=== PATIENT | male | born 1955 | race Caucasian/White ===

== ENCOUNTER 2024-03-06 00:42 | Inpatient (IN) | payer MEDICAID, MEDICARE ==
[~2024-03-06] VITALS: Ht 177.8 cm; Wt 125.0 kg
[2024-03-06 00:42] VITALS: PULSE 175; RESP 16; O2SAT 95
[~2024-03-06 00:42] MED LIST: CARV6.2551; ENAL1TAB48
[2024-03-06] MEDS: METOPROLOL TARTRATE 1MG/1ML-5ML VIAL IV ONE ×3 (00:54→02:00)
[2024-03-06] MEDS: FUROSEMIDE 40 MG/4 ML VIAL IV ONE ×2 (00:54→02:40)
--- NOTE | 2024-03-06 01:08 | ED.PDOC ---
SOB-HPI HPI Comments 68-year-old male came to ER via EMS for shortness of breath. Patient does have history of hypertension, CHF and COPD. Was noted to be short of breath for the past week, progressively worsening. Noted to be saturating 80 % on room air, placed on non-rebreather in improved with the 94%. EKG done revealed Afib at 170 bpm. Denies any acute chest pains. Chief Complaint: Shortness of Breath Time Seen by MD: 01:08 Primary Care Provider: NONE Reviewed notes: Lead Designer Notes Information Source: Patient, Emergency Med Personnel Mode of Arrival: EMS Severity: Moderate Timing: Days Duration: Since onset Context: With Light Exertion PE Risk Factors: None History of: COPD, CHF Prehospital treatment: Breathing Tx, Oxygen Modifying Factors: Nothing Associated Signs and Symptoms: Wheeze, Cough Quality: Tightness Radiation: No Radiation Past Medical History PAST MEDICAL HISTORY: CHF, COPD, HTN Surgical History: Denies all surgeries Family History Family History: Reviewed,noncontributory to illness Social History Smoker: Non-Smoker Alcohol: Denies ETOH Use Drugs: Denies Drug Use Lives In: Home Constitutional: reports: fatigue, weakness; denies: chills, diaphoresis, fever, malaise, sweats, others EENTM: denies: blurred vision, double vision, ear bleeding, ear discharge, ear drainage, ear pain, ear ringing, eye pain, eye redness, hearing loss, mouth pain, mouth swelling, nasal discharge, nose bleeding, nose congestion, nose pain, photophobia, tearing, throat pain, throat swelling, voice changes, others Respiratory: reports: SOB at rest, shortness of breath, SOB with excertion, wheezing; denies: cough, hemoptysis, orthopnea, stridor, others Cardiovascular: reports: chest pain, edema; denies: dizzy spells, diaphoresis, Dyspnea on exertion, irregular heart beat, left arm pain, lightheadedness, palpitations, PND, syncope, others Gastrointestinal: denies: abdomen distended, abdominal pain, blood streaked bowels, constipated, diarrhea, dysphagia, difficulty swallowing, hematemesis, melena, nausea, poor appetite, poor fluid intake, rectal bleeding, rectal pain, vomiting, others Genitourinary: denies: burning, dysuria, flank pain, frequency, hematuria, incontinence, penile discharge, penile sore, pain, testicle pain, testicle swelling, urgency, others Neurological: denies: dizziness, fainting, headache, left sided numbness, left sided weakness, numbness, paresthesia, pre-existing deficit, right sided numbness, right sided weakness, seizure, speech problems, tingling, tremors, weakness, others Musculoskeletal: denies: back pain, gout, joint pain, joint swelling, muscle pain, muscle stiffness, neck pain, others Integumetry: denies: bruises, change in color, change in hair/nails, dryness, laceration, lesions, lumps, rash, wounds, others Allergic/Immunocompromised: denies: Difficulty Healing, Frequent Infections, Hives, Itching, others Hematologic/Lymphatic: denies: anemia, blood clots, easy bleeding, easy bruising, swollen glands, others Endocrine: denies: excessive hunger, excessive sweating, excessive thirst, excessive urination, flushing, intolerance to cold, intolerance to heat, unexplained weight gain, unexplained weight loss, others Psychiatric: denies: anxiety, bipolar disorder, depression, hopeless, panic disorder, schizophrenia, sleepless, suicidal, others Physical Exam General Appearance: No Apparent Distress, Normal HEENT: Normal ENT Inspection, Pharynx Normal, TMs Normal Neck: Full Range of Motion, Non-Tender, Normal, Normal Inspection Respiratory: Chest Non-Tender, No Accessory Muscle Use, Respiratory Distress, Wheezing Cardiovascular: No JVD, No Murmur, No Gallop, Tachycardia Breast Exam: Deferred Gastrointestinal: No Organomegaly, Non Tender, No Pulsatile Mass, Normal Bowel Sounds, Soft Genitalia: Deferred Pelvic: Deferred Rectal: Deferred Extremities: No calf tenderness, Normal capillary refill, Normal range of motion, Non-tender, Pedal edema, Swelling Musculoskeletal : Apperance: Normal Neurologic: Alert, c application developer II-XII nml as Tested, No Motor Deficits, Normal Affect, Normal Mood, No Sensory Deficits Cerebellar Function: Normal Reflexes: Normal Skin: Dry, Normal Color, Warm Lymphatic: No Adenopathy EKG EKG : Pulse Rate (adult): 178 Cardiac Rhythm: Afib Comments Ventricular bigeminy Was a procedure done? Was a procedure done?: No Differential Dx Differential Diagnosis: Anxiety, Bronchitis, CHF, COPD, Myocardial infarction, Pneumonia, Respiratory Distress X-Ray, Labs, Meds, VS Vital Signs Date Time Temp Pulse Resp B/P (MAP) Pulse Ox O2 Delivery O2 Flow Rate FiO2 03/06/24 02:00 144 121/90 03/06/24 02:00 144 120/90 03/06/24 01:42 137 03/06/24 01:24 150 117/94 03/06/24 01:23 150 117/94 03/06/24 01:09 178 03/06/24 00:54 132/81 03/06/24 00:54 175 132/81 03/06/24 00:42 178 03/06/24 00:42 175 16 95 Nasal Cannula* 3 32 03/06/24 00:42 98.3 193 24 139/94 (109) 94 03/06/24 00:42 97.5 171 25 139/94 (109) 91 97.5 Lab Test 03/06/24 02:05 03/06/24 01:11 03/06/24 01:02 Range/Units Troponin I High Sensitivity Pending 100 *H </=54 ng/L White Blood Count 8.0 4.4-10.8 10^3/uL Red Blood Count 4.14 L 4.5-5.90 10^6/uL Hemoglobin 12.4 L 13.5-17.5 g/dL Hematocrit 38.7 L 41.0-53.0 % Mean Corpuscular Volume 93.5 80.0-100.0 fL Mean Corpuscular Hemoglobin 29.9 28.0-32.0 pg Mean Corpuscular Hemoglobin Concent 32.0 32.0-36.0 g/dL Red Cell Distribution Width 15.2 H 11.8-14.3 % Platelet Count 203 140-450 10^3/uL Mean Platelet Volume 10.8 6.9-10.8 fL Neutrophils (%) (Auto) 76.6 37.0-80.0 % Lymphocytes (%) (Auto) 9.8 L 10.0-50.0 % Monocytes (%) (Auto) 12.8 H 0.0-12.0 % Eosinophils (%) (Auto) 0.3 0.0-7.0 % Basophils (%) (Auto) 0.5 0.0-2.0 % Neutrophils # (Auto) 6.2 1.6-8.6 10 ^3/uL Lymphocytes # (Auto) 0.8 0.4-5.4 10 ^3/uL Monocytes # (Auto) 1.0 0-1.3 10 ^3/uL Eosinophils # (Auto) 0 0-0.8 10 ^3/uL Basophils # (Auto) 0 0-0.2 10 ^3/uL Nucleated Red Blood Cells 0.3 % Sodium Level 134 L 136-145 mmol/L Potassium Level 4.6 3.5-5.1 mmol/L Chloride Level 98 98-107 mmol/L Carbon Dioxide Level 29 20-31 mmol/L Anion Gap 7 5-15 Blood Urea Nitrogen 29 H 9-23 mg/dL Creatinine 2.31 H 0.700-1.30 mg/dL Glomerular Filtration Rate Calc 30 >90 mL/min BUN/Creatinine Ratio 12.6 10.0-20.0 Serum Glucose 116 H 74-106 mg/dL Calcium Level 10.1 8.7-10.4 mg/dL B-Type Natriuretic Peptide 711.04 0-100 pg/mL Urine Color Pending Urine Clarity Pending Urine pH Pending Urine Specific [place] Pending Urine Protein Pending Urine Ketones Pending Urine Blood Pending Urine Nitrite Pending Urine Bilirubin Pending Urine Urobilinogen Pending Urine Leukocyte Esterase Pending Urine RBC Pending Urine Microscopic WBC Pending Urine Squamous Epithelial Cells Pending Urine Bacteria Pending Urine Glucose Pending Current Medications Medications (Trade) Dose Ordered Sig/Joe Route Start Time Stop Time Status Last Admin Metoprolol Tartrate (Lopressor) 5 mg ONCE ONCE IV 03/06/24 00:45 03/06/24 00:46 DC 03/06/24 00:54 Furosemide (Lasix Injection) 40 mg ONCE ONCE IV 03/06/24 00:45 03/06/24 00:46 DC 03/06/24 00:54 Metoprolol Tartrate (Lopressor) 5 mg ONCE ONCE IV 03/06/24 01:30 03/06/24 01:31 DC 03/06/24 01:23 Metoprolol Tartrate (Lopressor) 5 mg ONCE ONCE IV 03/06/24 01:45 03/06/24 01:46 DC 03/06/24 02:00 Time of 1ST Reevaluation: 01:01 Reevaluation 1ST: Unchanged Patient Education/Counseling: Diagnosis, Treatment Family Education/Counseling: No Family Present Departure 1 Departure Time of Disposition: 02:23 (Patient presents with atrial fib with RVR and acute systolic heart failure. Patient largely volume overload. Attempted metoprolol without good effect. We will start patient on amnio drip and Lasix and admit patient for further workup) Impression: Primary Impression: Atrial fibrillation with RVR Additional Impression: Acute on chronic systolic (congestive) heart failure Disposition: 09 ADMITTED INPATIENT Admit to: [facility] Condition: Guarded Critical Care Note Critical Care Time?: Yes (45 min-critical care time only) Critical care comment: Shortness of breath, AFib Authorized and Performed by: Shellie Roper MD Total critical care time: Approximately 38 minutes Due to a high probability of clinically significant, life threatening deterioration, the patient required my highest level of preparedness to intervene emergently and I personally spent this critical care time directly and personally managing the patient. This critical care time included obtaining a history; examining the patient; pulse oximetry; ordering and review of studies; arranging urgent treatment with development of a management plan; evaluation of patient's response to treatment; frequent reassessment; and, discussions with other providers. This critical care time was performed to assess and manage the high probability of imminent, life-threatening deterioration that could result in multi-organ failure. It was exclusive of separately billable procedures and treating other patients and teaching time. Please see my other sections and the rest of the note for further information on patient assessment and treatment. Stability Stability form required: No Heart Score Heart Score: Heart Score Response (Comments) Value History Moderate Suspicious 1 EKG Repolarization Disturb 1 Age >65 2 Risk Factors >3 or Hx ASHD 2 Troponin Normal limit 0 Total 6 I personally scribed for SHELLIE ROPER MD ([email or web address]) on 03/06/24 at 01:08. Electronically submitted by Tomi Brown ([email or web address]). I personally scribed for SHELLIE ROPER MD ([email or web address]) on 03/06/24 at 01:09. Electronically submitted by Tomi Brown ([email or web address]). SHELLIE ROPER MD Mar 06, 2024 01:08
[2024-03-06 01:26] LABS: Basophils # (auto) 0 10 ^3/uL (0-0.2); Basophils % (auto) 0.5 % (0.0-2.0); Eosinophils # (auto) 0 10 ^3/uL (0-0.8); Eosinophils % (auto) 0.3 % (0.0-7.0); Hematocrit 38.7 % (41.0-53.0); Hemoglobin 12.4 g/dL (13.5-17.5); Lymphocytes # (auto) 0.8 10 ^3/uL (0.4-5.4); Lymphocytes % (auto) 9.8 % (10.0-50.0); Mean Corpuscular Hemoglobin 29.9 pg (28.0-32.0); Mean Corpuscular Volume 93.5 fL (80.0-100.0); Monocytes % (auto) 12.8 % (0.0-12.0); Neutrophils # (auto) 6.2 10 ^3/uL (1.6-8.6); Neutrophils % (auto) 76.6 % (37.0-80.0); Nucleated Red Blood Cells % 0.3 %; Platelet Count (auto) 203 10^3/uL (140-450); Red Blood Cells 4.14 10^6/uL (4.5-5.90); Red Cell Distribution Width 15.2 % (11.8-14.3)
--- NOTE | 2024-03-06 01:28 | DVH ---
CHEST RADIOGRAPH Indication: sob Technique: Single frontal view of the chest was obtained Comparison: None Findings/ IMPRESSION: Mild cardiomegaly. Elevated right hemidiaphragm. No active cardiopulmonary disease.
[2024-03-06 01:37] LABS: Potassium 4.6 mmol/L (3.5-5.1)
[2024-03-06 01:38] LABS: Anion Gap 7 (5-15); Calcium 10.1 mg/dL (8.7-10.4); Carbon Dioxide 29 mmol/L (20-31)
[2024-03-06 01:43] LABS: BUN/Creatinine Ratio 12.6 (10.0-20.0)
[2024-03-06 01:46] LABS: Blood Urea Nitrogen 29 mg/dL (9-23); Chloride 98 mmol/L (98-107); Glucose 116 mg/dL (74-106); Sodium 134 mmol/L (136-145)
[2024-03-06 02:17] LABS: Urine Bacteria None Seen /hpf (None Seen)
[2024-03-06] MEDS: AMIODARONE 360mg/200mL PREMIX 200 ML IV SCH (02:30)
[2024-03-06 02:35] LABS: Urine Blood 2+ /uL (Negative); Urine Clarity Clear (Clear); Urine Color Yellow (Yellow); Urine Hyaline Cast MANY /lpf (0 - 2); Urine Mucus FEW (None Seen); Urine Protein, UAD 1+ (Negative); Urine Specific Gravity 1.024 (1.001-1.035); Urine Squamous Epithelial Cell FEW /hpf (<5); Urine Urobilinogen 2 mg/dL (Negative); Urine WBC 7 /HPF (0-3); Urine pH 5.5 (5.0-9.0)
[2024-03-06] MEDS: AMIODARONE BOLUS KIT 100 ML IV ONE (02:40)
[2024-03-06] MEDS ORDERED: AMIODARONE 360mg/200mL PREMIX 200 ML IV SCH ×2 (02:45→08:45)
[2024-03-06] MEDS: AMIODARONE 360mg/200mL PREMIX 200 ML IV ONE (02:45)
[2024-03-06] MEDS: HYDROcodone-ACET 5/325MG TAB PO ONE (04:29)
--- NOTE | 2024-03-06 06:50 | ECG ---
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
[2024-03-06 07:30] VITALS: PULSE 129; RESP 20; O2SAT 95
--- NOTE | 2024-03-06 08:59 | DVHHP2 ---
History of Present Illness Reason for Visit: SOB History of Present Illness Vik Jha is a 68-year-old male with past medical history of hypertension, COPD, CHF, fall, and right elbow surgery who presents to the ED for shortness of breath since 8:30 p.m. last night. Patient reports that he was sitting watching TV and suddenly developed shortness of breath. Patient also reports that he uses 2.5 L nasal cannula of oxygen at home. He also reports that he quit smoking smoking, denies illicit drug use, denies alcohol use. Upon examination digits are cyanotic, patient is sitting up in commode, and answering questions appropriately. Patient currently on 1 L nasal cannula oxygen. Patient reports also that recently he was having nausea for several weeks due to the stomach flu. Patient denies any chest pain, abdominal pain, vomiting, diarrhea, lightheadedness, fever, chills, weakness, and dizziness. Cardiovascular: CHF, HTN Pulmonary: COPD Past Medical History Multiple falls Past Surgical History: Other (Right elbow surgery) Family History: Other (Mom due to kidney failure and dad due to asbestos exposure) Smoke: Quit ALCOHOL: none Drugs: None Lives: with Family Domestic Violence: Neg Review of Systems Constitutional: No: Fever, Chills, Sweats, Weakness, Malaise, Other Eyes: No: Pain, Vision change, Conjunctivae inflammation, Eyelid inflammation, Other, Redness ENT: No: Ear pain, Ear discharge, Nose pain, Nose discharge, Nose congestion, Mouth pain, Mouth swelling, Throat pain, Throat swelling, Other Respiratory: Shortness of breath; No: Cough, Dry, SOB with excertion, Wheezing, Hemoptysis, Pleuritic Pain, Sputum, Wheezing, Other Cardiovascular: No: Chest Pain, Palpitations, Orthopnea, Paroxysmal Noc. Dyspnea, Edema, Lt Headedness, Other Gastrointestinal: Nausea; No: Vomiting, Abdominal Pain, Diarrhea, Constipation, Melena, Hematochezia, Other Genitourinary: No Dysuria, No Frequency, No Incontinence, No Hematuria, No Retention, No Other Musculoskeletal: No: other, neck pain, shoulder pain, arm pain, back pain, hand pain, leg pain, foot pain Skin: Other; No: Rash, Lesions, Jaundice, Bruising Neurological: No: Weakness, Numbness, Incoordination, Change in speech, Confusion, Seizures, Other Allergies: Coded Allergies: Penicillins (Unverified Allergy, Unknown, 11/30/13) Exam Vital Signs Vital Signs Date Time Temp Pulse Resp B/P (MAP) Pulse Ox O2 Delivery O2 Flow Rate FiO2 03/06/24 08:00 135 03/06/24 07:30 20 95 Nasal Cannula* 2 28 03/06/24 07:30 97.9 92/74 (80) 97.9 General Appearance: Alert, Oriented X3, Cooperative, No acute distress HEENT: Atraumatic, PERRLA, EOMI, Mucous membr. moist/pink Respiratory: Normal air movement Cardiovascular: Normal S1, Normal S2, No murmurs Abdominal: Normal bowel sounds, Soft, No tenderness, No hepatospenomegaly, No masses Extremities: No cyanosis, Normal pulses Skin: No rashes, No breakdown, No significant lesion Neuro: Normal gait, Normal speech, Strength at 5/5 X4 ext, Normal tone, Sensation intact Psych/Mental Status: Mental status NL, Mood NL Labs/Xrays Labs Test 03/06/24 04:05 03/06/24 01:11 03/06/24 01:02 Range/Units Troponin I High Sensitivity 100 *H </=54 ng/L White Blood Count 8.0 4.4-10.8 10^3/uL Red Blood Count 4.14 L 4.5-5.90 10^6/uL Hemoglobin 12.4 L 13.5-17.5 g/dL Hematocrit 38.7 L 41.0-53.0 % Mean Corpuscular Volume 93.5 80.0-100.0 fL Mean Corpuscular Hemoglobin 29.9 28.0-32.0 pg Mean Corpuscular Hemoglobin Concent 32.0 32.0-36.0 g/dL Red Cell Distribution Width 15.2 H 11.8-14.3 % Platelet Count 203 140-450 10^3/uL Mean Platelet Volume 10.8 6.9-10.8 fL Neutrophils (%) (Auto) 76.6 37.0-80.0 % Lymphocytes (%) (Auto) 9.8 L 10.0-50.0 % Monocytes (%) (Auto) 12.8 H 0.0-12.0 % Eosinophils (%) (Auto) 0.3 0.0-7.0 % Basophils (%) (Auto) 0.5 0.0-2.0 % Neutrophils # (Auto) 6.2 1.6-8.6 10 ^3/uL Lymphocytes # (Auto) 0.8 0.4-5.4 10 ^3/uL Monocytes # (Auto) 1.0 0-1.3 10 ^3/uL Eosinophils # (Auto) 0 0-0.8 10 ^3/uL Basophils # (Auto) 0 0-0.2 10 ^3/uL Nucleated Red Blood Cells 0.3 % Sodium Level 134 L 136-145 mmol/L Potassium Level 4.6 3.5-5.1 mmol/L Chloride Level 98 98-107 mmol/L Carbon Dioxide Level 29 20-31 mmol/L Anion Gap 7 5-15 Blood Urea Nitrogen 29 H 9-23 mg/dL Creatinine 2.31 H 0.700-1.30 mg/dL Glomerular Filtration Rate Calc 30 >90 mL/min BUN/Creatinine Ratio 12.6 10.0-20.0 Serum Glucose 116 H 74-106 mg/dL Calcium Level 10.1 8.7-10.4 mg/dL B-Type Natriuretic Peptide 711.04 0-100 pg/mL Urine Color Yellow Yellow Urine Clarity Clear Clear Urine pH 5.5 5.0-9.0 Urine Specific [place] 1.024 1.001-1.035 Urine Protein 1+ H Negative Urine Ketones Negative Negative Urine Blood 2+ H Negative /uL Urine Nitrite Negative Negative Urine Bilirubin Negative Negative Urine Urobilinogen 2 H Negative mg/dL Urine Leukocyte Esterase Negative Negative /uL Urine RBC 13 0 - 3 /hpf Urine Microscopic WBC 7 H 0-3 /HPF Urine Squamous Epithelial Cells Few <5 /hpf Urine Bacteria None seen None Seen /hpf Urine Hyaline Casts Many 0 - 2 /lpf Urine Mucus Few None Seen Urine Glucose Normal Normal mg/dL CHEST RADIOGRAPH Indication: sob Technique: Single frontal view of the chest was obtained Comparison: None Findings/ IMPRESSION: Mild cardiomegaly. Elevated right hemidiaphragm. No active cardiopulmonary disease. Assessment/Plan Assessment/Plan Assessment/Plan: AFib with RVR Cardiomegaly Labs EKG Pain management Lasix given in ED Amnio drip started in ED Metoprolol given ED UA Mejia catheterization Troponin Chest x-ray BNP Echo ordered Respiratory treatments Strict eyes and nose Cardiology consult A.m. labs TSH Lipid panel UDS Chronic hypertension Continue home medications Chronic COPD P.r.n. respiratory treatments FEN/PPX Diet Hep-Lock DVT prophylaxis-not indicated patient ambulating PUD prophylaxis-not indicated no history of GERD or GI bleed home medications reconciled discussed plan of care with patient and nurse Admit to tele Plan discussed with: Patient Date of Service: Mar 06, 2024 Billing Provider: MARTI BERGMAN Common Visit Codes: [id number] INP/OBS CARE (HIGH) MARTI BERGMAN Mar 06, 2024 08:59
[2024-03-06] MEDS ORDERED: ALBUTEROL SULF 2.5 MG/0.5ML(0.5%) NEB SOLN NEB PRN (09:00)
[2024-03-06] MEDS ORDERED: MORPHINE SULFATE INJ 2 MG/ml SYRG IV PRN (09:00)
[2024-03-06] MEDS ORDERED: ONDANSETRON HCL 4 MG/2 ML VIAL IV PRN (09:00)
[2024-03-06] MEDS ORDERED: NITROGLYCERIN 0.4 MG SL TAB SL PRN (09:00)
[2024-03-06] MEDS ORDERED: IPRATROPIUM BROM 0.5 MG/2.5ML INH SOL NEB PRN (09:00)
[2024-03-06 11:29] VITALS: BP 127/79; PULSE 126; RESP 20; TEMP 97.9; O2SAT 95
[2024-03-06] MEDS: ALBUTEROL SULF 2.5 MG/0.5ML(0.5%) NEB SOLN NEB SCH (12:00)
[2024-03-06] MEDS: IPRATROPIUM BROM 0.5 MG/2.5ML INH SOL NEB SCH (12:01)
[2024-03-06 15:19] LABS: Triglycerides 111 mg/dL (< 150)
--- NOTE | 2024-03-06 15:19 | DVHINCON2 ---
Date Seen: Mar 06, 2024 Referring Physician LANA Rosado Reason for Consultation Elevated troponin History of Present Illness This is a 68-year-old male patient who presents to the emergency room with chief complaint of worsening shortness of breath for one day. The patient reports having shortness of breath for approximately two months now. He reports that yesterday at approximately 8:30 p.m. last night he began experiencing worsening shortness of breath without relief. He describes dyspnea on exertion as well as orthopnea. He came to the emergency room for further evaluation. Cardiology has now been consulted for elevated troponin level. Initial twelve lead elect rocardiogram revealed atrial fibrillation with rapid ventricular response and PVCs. Initial troponin level of 100ng/L with flat trend thereafter. Initial BNP level of 711.04pg/mL. Significant past medical history includes congestive heart failure, hypertension, peripheral arterial disease status post stent to right leg, COPD with home oxygen dependence, and morbid obesity. The patient denies following up with a carpenter mate in the outpatient setting. The patient is a poor historian and denies any previous history of atrial fibrillation. He currently does not have a list of his home medications and does not remember any medications that he takes. No previous visits to this facility per records. Past Medical History Past medical history reviewed. No other significant than mentioned above. Past Surgical History Right elbow surgery Family History Family history reviewed. Social History Patient has a 90 pack-year history, quit smoking in 2005 Patient denies any illicit drug use Patient denies any alcohol use Allergies: Coded Allergies: Penicillins (Unverified Allergy, Unknown, 11/30/13) Home Meds Reported Medications Enalapril Maleate (Enalapril Maleate) 20 Mg Tab, #90 11/30/13 Carvedilol (Carvedilol) 6.25 Mg Tab, #180 11/30/13 Home Meds Home medications reviewed. Current Medications Current Medications Medications (Trade) Dose Ordered Sig/Joe Route PRN Reason Start Time Stop Time Status Last Admin Acetaminophen (Tylenol Tablet) 650 mg Q6HP PRN PO MILD PAIN (1-3 PAIN SCALE) 03/06/24 09:00 Ondansetron HCl (Zofran) 4 mg Q4HP PRN IV NAUSEA / VOMITING 03/06/24 09:00 Nitroglycerin (Ntrostat Sublingual) 0.4 mg Q5MINP PRN SL FOR CHEST PAIN 03/06/24 09:00 Morphine Sulfate 2 mg Q30M PRN IV FOR CHEST PAIN 03/06/24 09:00 Furosemide (Lasix Injection) 40 mg BIDD IV 03/06/24 18:00 Albuterol (Ventolin Medneb) 2.5 mg Q6HWA NEB 03/06/24 12:00 03/06/24 12:00 Albuterol (Ventolin Medneb) 2.5 mg Q4HPRN PRN NEB SHORTNESS OF BREATH 03/06/24 09:00 Ipratropium [place] (Atrovent Medneb) 0.5 mg Q6HWA NEB 03/06/24 12:00 03/06/24 12:01 Ipratropium [place] (Atrovent Medneb) 0.5 mg Q4HPRN PRN NEB SHORTNESS OF BREATH 03/06/24 09:00 Review of Systems Constitutional: No symptom reported Ears, Nose, & Throat: No symptom reported Eyes: No symptom reported Neurological: No symptoms reported Pulmonary/Respiratory: Shortness of breath Cardiovascular: No symptom reported Gastrointestinal: No symptom reported Genitourinary: No symptom reported Musculoskeletal: No symptom reported Skin: No symptom reported Psychiatric: No symptom reported Endocrine: No symptom reported Hematologic/Lymphatic: No symptom reported Vital Signs Vital Signs Date Time Temp Pulse Resp B/P (MAP) Pulse Ox O2 Delivery O2 Flow Rate FiO2 03/06/24 14:00 140 20 127/88 (101) 94 03/06/24 12:00 Nasal Cannula* 1 24 03/06/24 11:29 97.9 97.9 Physical Exam General Appearance: Cooperative. Morbidly obese Pulmonary/Respiratory: Clear, bilateral breaths sounds. Cardiovascular/Chest: Irregular rate and rhythm. Peripheral Pulses: 2+ Radial (R). 2+ Radial (L). 2+ Pedal (R). 2+ Pedal (L) Abdominal Exam: Normal bowel sounds. Ankle Exam: Negative ankle edema Lower extremities: Negative lower extremity edema Neuro/Mental Status: A/OX4, coherent. Thoughts/Psych: Normal thought pattern. Appropriate mood and affect. Good j udgment and insight. Appearance: No acute distress. Skin Exam: Discoloration to bilateral hands. Skin warm and dry Labs/Diagnostic Data Labs Test 03/06/24 09:21 03/06/24 01:11 03/06/24 01:02 Range/Units Troponin I High Sensitivity 131 *H </=54 ng/L White Blood Count 8.0 4.4-10.8 10^3/uL Red Blood Count 4.14 L 4.5-5.90 10^6/uL Hemoglobin 12.4 L 13.5-17.5 g/dL Hematocrit 38.7 L 41.0-53.0 % Mean Corpuscular Volume 93.5 80.0-100.0 fL Mean Corpuscular Hemoglobin 29.9 28.0-32.0 pg Mean Corpuscular Hemoglobin Concent 32.0 32.0-36.0 g/dL Red Cell Distribution Width 15.2 H 11.8-14.3 % Platelet Count 203 140-450 10^3/uL Mean Platelet Volume 10.8 6.9-10.8 fL Neutrophils (%) (Auto) 76.6 37.0-80.0 % Lymphocytes (%) (Auto) 9.8 L 10.0-50.0 % Monocytes (%) (Auto) 12.8 H 0.0-12.0 % Eosinophils (%) (Auto) 0.3 0.0-7.0 % Basophils (%) (Auto) 0.5 0.0-2.0 % Neutrophils # (Auto) 6.2 1.6-8.6 10 ^3/uL Lymphocytes # (Auto) 0.8 0.4-5.4 10 ^3/uL Monocytes # (Auto) 1.0 0-1.3 10 ^3/uL Eosinophils # (Auto) 0 0-0.8 10 ^3/uL Basophils # (Auto) 0 0-0.2 10 ^3/uL Nucleated Red Blood Cells 0.3 % Sodium Level 134 L 136-145 mmol/L Potassium Level 4.6 3.5-5.1 mmol/L Chloride Level 98 98-107 mmol/L Carbon Dioxide Level 29 20-31 mmol/L Anion Gap 7 5-15 Blood Urea Nitrogen 29 H 9-23 mg/dL Creatinine 2.31 H 0.700-1.30 mg/dL Glomerular Filtration Rate Calc 30 >90 mL/min BUN/Creatinine Ratio 12.6 10.0-20.0 Serum Glucose 116 H 74-106 mg/dL Calcium Level 10.1 8.7-10.4 mg/dL B-Type Natriuretic Peptide 711.04 0-100 pg/mL Urine Color Yellow Yellow Urine Clarity Clear Clear Urine pH 5.5 5.0-9.0 Urine Specific [place] 1.024 1.001-1.035 Urine Protein 1+ H Negative Urine Ketones Negative Negative Urine Blood 2+ H Negative /uL Urine Nitrite Negative Negative Urine Bilirubin Negative Negative Urine Urobilinogen 2 H Negative mg/dL Urine Leukocyte Esterase Negative Negative /uL Urine RBC 13 0 - 3 /hpf Urine Microscopic WBC 7 H 0-3 /HPF Urine Squamous Epithelial Cells Few <5 /hpf Urine Bacteria None seen None Seen /hpf Urine Hyaline Casts Many 0 - 2 /lpf Urine Mucus Few None Seen Urine Glucose Normal Normal mg/dL Assessment Atrial fibrillation with rapid ventricular response, ?newly diagnosed Acute on chronic decompensated HFrEF, NYHA class III NSTEMI, likely type II secondary to above Hypertension Peripheral arterial disease s/p right leg stent Pulmonary hypertension COPD with home oxygen dependence Acute kidney injury versus chronic kidney disease History of heavy tobacco use Morbid obesity Plan/Recommendation We will continue with the following plan/recommendations (Dr. Koo): * Echocardiogram reveals EF 20-25% with severe global hypokinesis and RVSP 40- 50mmHg * Initiate guideline directed medical therapy for CHF as tolerated * Unable to initiate full GDMT given poor renal function * Strict intake and output, daily weights, maintain fluid restriction * Diuresis as tolerated * [id number] VASc score: 3 points * Initiate patient on NOAC therapy * Beta-geno for rate control * Cardiac surveillance * Lipid-lowering agent * Monitor and replete electrolytes as needed, keep potassium greater than 4 and magnesium greater than 2 Patient seen and examined at bedside with . Thank you for allowing us to care for this patient. Please call with any questions or concerns. Critical care time spent: 40 minutes This medical document was created using an electronic medical record system with voice recognition software and computerized dictation system. Although this document has been carefully reviewed, there might still be some phonetic and typographical errors. Occasional wrong-word or ``sound-alike substitutions may have occurred due to the inherent limitations of voice recognition software. These areas are purely typographical due to imperfections of the software programs and do not reflect any compromise in the patient's medical care. Please read the chart carefully and recognize, using context, where these substitutions have occurred. Plan discussed with: Patient NYHA Physical activity limitations: Class3(Marked) ordinary (activity causes symtoms) Date of Service: Mar 06, 2024 Billing Provider: KEVAN KOO MD Cardiology Common Codes: [id number] INP/OBS CARE (High) Cardiology Consultation Codes: [id number] CONSULT <45MIN LANDON GIANG Mar 06, 2024 15:19
[2024-03-06 15:20] LABS: LDL Cholesterol 81 mg/dL (< 100)
[2024-03-06 15:21] LABS: Cholesterol 118 mg/dL (< 200); HDL Cholesterol 25 mg/dL (40-59)
[2024-03-06 15:46] LABS: Opiate Scree,Urine Neg (NEGATIVE)
[2024-03-06 15:48] LABS: Amphetamine Screen, Urine Neg (NEGATIVE); Barbiturate Scree,Urine Neg (NEGATIVE); Benzodiazephine Screen, Urine Neg (NEGATIVE); Cannabinoid Screen, Urine Neg (NEGATIVE); Cocaine Screen, Urine Neg (NEGATIVE); Phencyclidine Screen, Urine Neg (NEGATIVE)
[2024-03-06] MEDS: METOPROLOL SUCCINATE XL 50 MG TAB PO ONE (16:56)
--- NOTE | 2024-03-06 17:00 | DVHSR ---
APPROVED REPORT EXAM: Two-dimensional and M-mode echocardiogram with Doppler and color Doppler. Blood Pressure: 92/74 mmHg INDICATION Chest Pain RISK FACTORS Height: 5' 10", Weight: 260 DIMENSIONS LVDd6.0 (3.8-5.7cm)LA (2D)5.2 (1.9-4.0cm)Aortic Root3.8 (2.0-3.7cm) LVDs5.6 (2.5-4.0cm)LA (MM) (1.9-4.0cm)Aortic Cusp Exc1.8 (1.5-2.0cm) EF (%) 25.0 (55-70%)Rt. Atrium5.7 (1.9-4.0cm)Asc. Aorta4.0 cm IVSd1.6 (0.7-1.1cm)RV (D) (1.8-2.4cm) PWd1.4 (0.7-1.1cm) Mitral Valve MitralMitral Stenosis E wave1.20m/sMV Mean GR.mmHg E/A ratio0.02D MVAcm2 Aortic Valve Aortic ValveAortic Stenosis V10.60m/[place] Mean GR.6mmHg V21.50m/[place] Peak GR.9mmHg LVOT Diameter2.5 (1.8-2.4cm)Doppler AVA1.96cm2 Pulmonic Valve V20.60m/s Tricuspid Valve TR Velocity3.00m/s [id number] LEFT VENTRICLE The left ventricle is mildly dilated in size. Wall thickness is moderately increased. Ejection frac tion is severely decreased and is estimated at 20-25%. Patient was tachycardic at the time of the st udy. Endocardial definition is very poor. Diastolic function is not assessed. RIGHT VENTRICLE The right ventricle is moderately dilated in size. Systolic function is mildly decreased. ATRIA Both atria are moderately to severely increased in size. Intra-atrial septum is not well visualized. MITRAL VALVE Mitral valve leaflets are mildly thickened. There is [id number] mitral regurgitation. PULMONIC VALVE Likely normal. TRICUSPID VALVE Not well visualized. There is at least moderate tricuspid regurgitation with a central jet. PA syst olic pressure is estimated at 40 to 50 mm Hg. AORTIC VALVE The leaflets appear to be mildly to moderately calcified. The aortic valve area is estimated at 1.9 cm2. Mean valve gradient is estimated at 6 mm Hg. GREAT VESSELS Aortic root measures 3.8 cm at the sinuses of Valsalva. Proximal ascending aorta measured 4.0 cm in diameter. PERICARDIAL EFFUSION There is no pericardial effusion. IVC is not well visualized. Conclusion The study is very technically limited. Dilated left ventricle with estimated ejection fraction of 20-25%. There is severe global hypokinesis but endocardial definition is very poor. Dilated right ventricle with mildly decreased systolic function. At least moderate tricuspid regurgitation. Calcified aortic valve with mild stenosis. Pwxv-mj-todtiial mitral regurgitation. PA systolic pressure is estimated at 40-50 mm Hg.
[2024-03-06] MEDS: FUROSEMIDE 40 MG/4 ML VIAL IV SCH (17:56)
[2024-03-06 18:45] VITALS: PULSE 130; RESP 14; O2SAT 93
[2024-03-06 18:53] VITALS: PULSE 128; RESP 14; O2SAT 99
[2024-03-06 19:30] VITALS: PULSE 138; RESP 27; O2SAT 94
[2024-03-06] MEDS: APIXABAN 5 MG TAB PO SCH (22:40)
[2024-03-06] MEDS: ATORVASTATIN 20 MG TAB PO SCH (22:40)
[2024-03-07] VITALS (19 sets, daily range): BP systolic 96–117; BP diastolic 62–89; PULSE 47–146; RESP 16–20; TEMP 97.3–98; O2SAT 91–100
[2024-03-07 08:22] LABS: Basophils # (auto) 0 10 ^3/uL (0-0.2); Basophils % (auto) 0.3 % (0.0-2.0); Eosinophils # (auto) 0 10 ^3/uL (0-0.8); Eosinophils % (auto) 0.2 % (0.0-7.0); Hematocrit 38.9 % (41.0-53.0); Hemoglobin 12.3 g/dL (13.5-17.5); Lymphocytes # (auto) 0.9 10 ^3/uL (0.4-5.4); Lymphocytes % (auto) 9.6 % (10.0-50.0); Mean Corpuscular Hemoglobin 29.7 pg (28.0-32.0); Mean Corpuscular Hgb Conc. 31.7 g/dL (32.0-36.0); Mean Corpuscular Volume 93.7 fL (80.0-100.0); Monocytes # (auto) 1.3 10 ^3/uL (0-1.3); Monocytes % (auto) 14.7 % (0.0-12.0); Neutrophils # (auto) 6.8 10 ^3/uL (1.6-8.6); Neutrophils % (auto) 75.2 % (37.0-80.0); Nucleated Red Blood Cells % 0.3 %; Platelet Count (auto) 218 10^3/uL (140-450); Red Blood Cells 4.15 10^6/uL (4.5-5.90); Red Cell Distribution Width 15.7 % (11.8-14.3); White Blood Cell 9.1 10^3/uL (4.4-10.8)
[2024-03-07 08:45] LABS: Albumin 3.9 g/dL (3.2-4.8); Alkaline Phosphatase 74 U/L (46-116); Anion Gap 12 (5-15); Calcium 9.7 mg/dL (8.7-10.4); Carbon Dioxide 24 mmol/L (20-31); Total Protein 7.1 g/dL (5.7-8.2)
[2024-03-07 08:52] LABS: Aspartate Aminotransferase 625 U/L (13-40); Bilirubin, Total 1.5 mg/dL (0.2-1.0); Chloride 94 mmol/L (98-107); Glucose 108 mg/dL (74-106); Sodium 130 mmol/L (136-145)
[2024-03-07 09:00] LABS: Alanine Aminotransferase 515 U/L (7-40); BUN/Creatinine Ratio 14.6 (10.0-20.0); Blood Urea Nitrogen 46 mg/dL (9-23); Potassium 4.5 mmol/L (3.5-5.1)
[2024-03-07] MEDS: METOPROLOL SUCCINATE XL 50 MG TAB PO SCH (10:15)
--- NOTE | 2024-03-07 13:17 | DVHPN2 ---
Consult Progress Note Subjective Other Systems: Patient remains in atrial fibrillation on financial analyst, with uncontrolled rate. Objective vital signs Vital Sign Date Time Temp Pulse Resp B/P (MAP) Pulse Ox O2 Delivery O2 Flow Rate FiO2 03/07/24 11:26 69 20 100 03/07/24 11:20 Nasal Cannula 3.0 03/07/24 11:20 32 03/07/24 10:15 114/69 03/07/24 08:47 98.0 98.0 Total Intake and Output 03/06/24 03/06/24 03/07/24 15:00 23:00 07:00 Intake Total 179.105 ml 116.62 ml 216.62 ml Balance 179.105 ml 116.62 ml 216.62 ml medications Current Medications Medications Dose Ordered Sig/Joe Route Start Time Stop Time Status Last Admin Dose Admin Acetaminophen 650 mg Q6HP PRN PO 03/06/24 09:00 Ondansetron HCl 4 mg Q4HP PRN IV 03/06/24 09:00 Nitroglycerin 0.4 mg Q5MINP PRN SL 03/06/24 09:00 Morphine Sulfate 2 mg Q30M PRN IV 03/06/24 09:00 Furosemide 40 mg BIDD IV 03/06/24 18:00 03/07/24 05:41 40 MG Albuterol 2.5 mg Q6HWA [facility] 03/06/24 12:00 03/07/24 11:16 2.5 MG Albuterol 2.5 mg Q4HPRN PRN NEB 03/06/24 09:00 Ipratropium [place] 0.5 mg Q6HWA [facility] 03/06/24 12:00 03/07/24 11:16 0.5 MG Ipratropium [place] 0.5 mg Q4HPRN PRN NEB 03/06/24 09:00 Apixaban 5 mg BID PO 03/06/24 22:00 03/07/24 10:13 5 MG Atorvastatin Calcium 20 mg HS PO 03/06/24 22:00 03/06/24 22:40 20 MG Metoprolol Succinate 100 mg DAILY PO 03/08/24 10:00 Examination: GENERAL:Normal, LUNGS:Normal, CVS:Abnormal (Atrial fibrillation with uncontrolled rate), NEURO:Normal laboratory and microbiology Laboratory Tests 03/07/24 07:34 Test 1/26/25 07:34 Range/Units Serum Glucose 108 H 74-106 mg/dL Problem List/Assessment/Plan Problem List/Assessment/Plan Atrial fibrillation with rapid ventricular response, ?newly diagnosed Acute on chronic decompensated HFrEF, NYHA class III NSTEMI, likely type II secondary to above Hypertension Peripheral arterial disease s/p right leg stent Pulmonary hypertension COPD with home oxygen dependence Acute kidney injury versus chronic kidney disease Transaminitis History of heavy tobacco use Morbid obesity Plan/Recommendation (Dr. Romo): * Echocardiogram reveals EF 20-25% with severe global hypokinesis and RVSP 40- 50mmHg * Guideline directed medical therapy for CHF as tolerated * Unable to initiate full GDMT given poor renal function * Strict intake and output, daily weights, maintain fluid restriction * Diuresis as tolerated * [id number] VASc score: 3 points * NOAC therapy, Eliquis * Beta-geno for rate control; up-titrate as tolerated * Cardiac surveillance * Lipid-lowering agent * Monitor and replete electrolytes as needed, keep potassium greater than 4 and magnesium greater than 2 * Consider Nephrology consultation Patient seen and examined at bedside with . Thank you for allowing us to care for this patient. Please call with any questions or concerns. This medical document was created using an electronic medical record system with voice recognition software and computerized dictation system. Although this document has been carefully reviewed, there might still be some phonetic and typographical errors. Occasional wrong-word or ``sound-alike substitutions may have occurred due to the inherent limitations of voice recognition software. These areas are purely typographical due to imperfections of the software programs and do not reflect any compromise in the patient's medical care. Please read the chart carefully and recognize, using context, where these substitutions have occurred. Plan discussed with: Patient Date of Service: Mar 07, 2024 Billing Provider: KEVAN ROMO MD Common Visit Codes: [id number] INP/OBS CARE(HIGH) LANDON GIANG [employer] EXAMINER Mar 07, 2024 13:17
--- NOTE | 2024-03-07 14:05 | DVHPN2 ---
Reviewed: Care Plan, H&P, Labs, Medications, Previous Orders, Radiology Changes from previous H/P or p: No Changes Eyes: No Pain, No Vision change, No Conjunctivae inflammation, No Eyelid inflammation, No Other, No Redness ENT: No Ear pain, No Ear discharge, No Nose pain, No Nose discharge, No Nose congestion, No Mouth pain, No Mouth swelling, No Throat pain, No Throat swelling, No Other Cardiovascular: No Chest Pain, No Palpitations, No Orthopnea, No Paroxysmal Noc. Dyspnea, No Edema, No Lt Headedness, No Other Respiratory: No Cough, No Dry; Shortness of breath; No SOB with excertion, No Wheezing, No Hemoptysis, No Pleuritic Pain, No Sputum, No Other Gastrointestinal: Nausea; No Vomiting, No Abdominal Pain, No Diarrhea, No Constipation, No Melena, No Hematochezia, No Other Genitourinary: No Dysuria, No Frequency, No Incontinence, No Hematuria, No Retention, No Other Musculoskeletal: No other, No neck pain, No shoulder pain, No arm pain, No back pain, No hand pain, No leg pain, No foot pain Skin: No Rash, No Lesions, No Jaundice, No Bruising; Other Objective Vitals Vital Signs Date Time Temp Pulse Resp B/P (MAP) Pulse Ox O2 Delivery O2 Flow Rate FiO2 03/07/24 13:12 97.6 75 17 114/89 (97) 97 97.6 03/07/24 11:20 Nasal Cannula 3.0 03/07/24 11:20 32 Intake/Output Intake and Output 03/07/24 07:00 Intake Total 512.345 ml Balance 512.345 ml Intake Oral 100 ml IV Total 412.345 ml Medications Current Medications Medications Dose Ordered Sig/Joe Route Start Time Stop Time Status Last Admin Dose Admin Acetaminophen 650 mg Q6HP PRN PO 03/06/24 09:00 Ondansetron HCl 4 mg Q4HP PRN IV 03/06/24 09:00 Nitroglycerin 0.4 mg Q5MINP PRN SL 03/06/24 09:00 Morphine Sulfate 2 mg Q30M PRN IV 03/06/24 09:00 Furosemide 40 mg BIDD IV 03/06/24 18:00 03/07/24 05:41 40 MG Albuterol 2.5 mg Q6HWA NEB 03/06/24 12:00 03/07/24 11:16 2.5 MG Albuterol 2.5 mg Q4HPRN PRN NEB 03/06/24 09:00 Ipratropium [place] 0.5 mg Q6HWA NEB 03/06/24 12:00 03/07/24 11:16 0.5 MG Ipratropium [place] 0.5 mg Q4HPRN PRN NEB 03/06/24 09:00 Apixaban 5 mg BID PO 03/06/24 22:00 03/07/24 10:13 5 MG Atorvastatin Calcium 20 mg HS PO 03/06/24 22:00 03/06/24 22:40 20 MG Metoprolol Succinate 100 mg DAILY PO 03/08/24 10:00 Laboratory Results Laboratory Tests 03/07/24 07:34 Chemistry Test 03/07/24 07:34 Albumin 3.9 g/dL (3.2-4.8) Calcium Level 9.7 mg/dL (8.7-10.4) Total Protein 7.1 g/dL (5.7-8.2) LFT Test 03/07/24 07:34 Alanine Aminotransferase (ALT) 515 U/L (7-40) H Alkaline Phosphatase 74 U/L (46-116) Aspartate Amino Transferase (AST) 625 U/L (13-40) H Total Bilirubin 1.5 mg/dL (0.2-1.0) H Urinalysis Test 03/06/24 01:02 Urine Color Yellow (Yellow) Urine Clarity Clear (Clear) Urine pH 5.5 (5.0-9.0) Urine Specific [place] 1.024 (1.001-1.035) Urine Protein 1+ (Negative) H Urine Ketones Negative (Negative) Urine Blood 2+ /uL (Negative) H Urine Nitrite Negative (Negative) Urine Bilirubin Negative (Negative) Urine Urobilinogen 2 mg/dL (Negative) H Urine Leukocyte Esterase Negative /uL (Negative) Urine RBC 13 /hpf (0 - 3) Urine Microscopic WBC 7 /HPF (0-3) H Urine Squamous Epithelial Cells Few /hpf (<5) Urine Bacteria None seen /hpf (None Seen) Urine Hyaline Casts Many /lpf (0 - 2) Urine Mucus Few (None Seen) Urine Glucose Normal mg/dL (Normal) Labs and/or images reviewed: Labs reviewed by me, Image(s) reviewed by me Assessment/Plan Assessment/Plan Atrial fibrillation with rapid ventricular response, ?newly diagnosed, Eliquis, metoprolol Acute on chronic decompensated HFrEF, NYHA class III, ejection fraction 20 percent cardiology consult appreciated NSTEMI, likely type II secondary to above Hypertension Hypothyroidism TSH 6.75: Synthroid Peripheral arterial disease s/p right leg stent Pulmonary hypertension COPD with home oxygen dependence Acute kidney injury versus chronic kidney disease History of heavy tobacco use Morbid obesity Will check Susan test rapid flu test D-dimer Plan discussed with: Patient Date of Service: Mar 07, 2024 Billing Provider: KORY ARCE MD Common Visit Codes: [id number] CARE 30-74 MIN KORY ARCE MD Mar 07, 2024 14:05
[2024-03-07] MEDS: METOPROLOL SUCCINATE XL 50 MG TAB PO ONE (15:26)
[2024-03-07 17:17] LABS: COVID19 ANTIGEN SOFIA FIA NEGATIVE (NEGATIVE)
[2024-03-07 19:03] LABS: Rapid Influenza A Negative (Negative); Rapid Influenza B Negative (Negative)
[2024-03-08] VITALS (20 sets, daily range): BP systolic 100–124; BP diastolic 77–90; PULSE 56–135; RESP 17–24; TEMP 97.7–98.7; O2SAT 91–99
[2024-03-08] MEDS: AMIODARONE 360mg/200mL PREMIX 200 ML IV SCH ×2 (01:43→19:30)
[2024-03-08] MEDS: LEVOTHYROXINE SODIUM 112 MCG TAB PO SCH (05:22)
[2024-03-08] MEDS: LEVOTHYROXINE SODIUM 25 MCG TAB PO SCH (05:22)
[2024-03-08 07:35] LABS: Basophils # (auto) 0 10 ^3/uL (0-0.2); Basophils % (auto) 0.2 % (0.0-2.0); Eosinophils # (auto) 0 10 ^3/uL (0-0.8); Eosinophils % (auto) 0.4 % (0.0-7.0); Hematocrit 39.6 % (41.0-53.0); Lymphocytes # (auto) 0.7 10 ^3/uL (0.4-5.4); Lymphocytes % (auto) 7.6 % (10.0-50.0); Mean Corpuscular Hgb Conc. 32.9 g/dL (32.0-36.0); Mean Corpuscular Volume 91.3 fL (80.0-100.0); Monocytes # (auto) 1.4 10 ^3/uL (0-1.3); Monocytes % (auto) 14.3 % (0.0-12.0); Neutrophils # (auto) 7.4 10 ^3/uL (1.6-8.6); Neutrophils % (auto) 77.5 % (37.0-80.0); Nucleated Red Blood Cells % 0.2 %; Platelet Count (auto) 213 10^3/uL (140-450); Red Blood Cells 4.34 10^6/uL (4.5-5.90); Red Cell Distribution Width 15.1 % (11.8-14.3); White Blood Cell 9.5 10^3/uL (4.4-10.8)
[2024-03-08 07:36] LABS: Anion Gap 13 (5-15); Carbon Dioxide 26 mmol/L (20-31); Potassium 4.7 mmol/L (3.5-5.1)
[2024-03-08 07:38] LABS: Calcium 9.7 mg/dL (8.7-10.4)
[2024-03-08 07:42] LABS: BUN/Creatinine Ratio 16.9 (10.0-20.0)
[2024-03-08 07:44] LABS: Blood Urea Nitrogen 57 mg/dL (9-23); Chloride 91 mmol/L (98-107); Glucose 108 mg/dL (74-106); Sodium 130 mmol/L (136-145)
[2024-03-08] MEDS: ACETAMINOPHEN 325 MG TAB PO PRN (08:40)
[2024-03-08] MEDS: METOPROLOL SUCCINATE XL 50 MG TAB PO SCH (08:40)
--- NOTE | 2024-03-08 10:42 | DVHPN2 ---
Consult Progress Note Date Seen: Mar 08, 2024 Subjective Review of Systems: CVS:Normal, RESPIRATORY:Normal, NEURO:Normal Other Systems: C/o "i feel a littler warm" Objective vital signs Vital Sign Date Time Temp Pulse Resp B/P (MAP) Pulse Ox O2 Delivery O2 Flow Rate FiO2 03/08/24 08:46 98.0 89 18 124/89 (101) 92 98.0 03/08/24 08:00 Nasal Cannula* 3 32 Total Intake and Output 03/07/24 03/07/24 03/08/24 15:00 23:00 07:00 Intake Total 800 ml 500 ml Output Total 550 ml 225 ml Balance 250 ml 275 ml medications Current Medications Medications Dose Ordered Sig/Joe Route Start Time Stop Time Status Last Admin Dose Admin Acetaminophen 650 mg Q6HP PRN PO 03/06/24 09:00 03/08/24 08:40 650 MG Ondansetron HCl 4 mg Q4HP PRN IV 03/06/24 09:00 Nitroglycerin 0.4 mg Q5MINP PRN SL 03/06/24 09:00 Morphine Sulfate 2 mg Q30M PRN IV 03/06/24 09:00 Furosemide 40 mg BIDD IV 03/06/24 18:00 03/08/24 05:22 40 MG Albuterol 2.5 mg Q6HWA [facility] 03/06/24 12:00 03/08/24 07:01 2.5 MG Albuterol 2.5 mg Q4HPRN PRN NEB 03/06/24 09:00 Ipratropium [place] 0.5 mg Q6HWA [facility] 03/06/24 12:00 03/08/24 07:01 0.5 MG Ipratropium [place] 0.5 mg Q4HPRN PRN NEB 03/06/24 09:00 Apixaban 5 mg BID PO 03/06/24 22:00 03/08/24 08:40 5 MG Atorvastatin Calcium 20 mg HS PO 03/06/24 22:00 03/07/24 21:19 20 MG Metoprolol Succinate 100 mg DAILY PO 03/08/24 10:00 03/08/24 08:40 100 MG Levothyroxine Sodium 112 mcg QAM@0600 PO 03/08/24 06:00 03/08/24 05:22 112 MCG Levothyroxine Sodium 25 mcg DAILY@0600 PO 03/08/24 06:00 03/08/24 05:22 25 MCG Examination: GENERAL:Abnormal, LUNGS:Normal, CVS:Abnormal (A-fib uncontrolled rate with NSVT episodes, on amiodarone drip), NEURO:Normal laboratory and microbiology Laboratory Tests 03/08/24 06:56 Test 03/08/24 06:56 Range/Units Serum Glucose 108 H 74-106 mg/dL Problem List/Assessment/Plan Problem List/Assessment/Plan NSTEMI, questionable Type I Atrial fibrillation with rapid ventricular response, newly diagnosed Acute on chronic decompensated HFrEF, NYHA class III Non-sustained ventricular tachycardia Peripheral arterial disease s/p right leg stent Pulmonary hypertension, moderate degree COPD with home oxygen dependence Hypertension GRACE on CKD Transaminitis History of heavy tobacco use Morbid obesity Plan/Recommendation (Dr. Koo) * Echocardiogram reveals EF 20-25% with severe global hypokinesis and RVSP 40- 50mmHg * Guideline directed medical therapy for CHF as renal function permits * Strict intake and output, daily weights, maintain fluid restriction * NOAC therapy, Eliquis BID * [id number] VASc score: 3 points * Rate control, beta-geno and digoxin therapy M-W- * Replete electrolytes as needed, k>4 and Mg>2 * Continue with Nephrology consultation Highly suspected for underlined coronary artery disease. The patient denies undergoing invasive cardiac procedures in the past. He can benefit from ischemic work-up as renal function permits. Thank you for allowing us to care for this patient. Please call with any questions or concerns. This medical document was created using an electronic medical record system with voice recognition software and computerized dictation system. Although this document has been carefully reviewed, there might still be some phonetic and typographical errors. Occasional wrong-word or ``sound-alike substitutions may have occurred due to the inherent limitations of voice recognition software. These areas are purely typographical due to imperfections of the software programs and do not reflect any compromise in the patient's medical care. Please read the chart carefully and recognize, using context, where these substitutions have occurred. Plan discussed with: Patient, Other Date of Service: Mar 08, 2024 Billing Provider: JP ROBLES Cardiology Common Codes: [id number] HOSP CARE(High JP ROBLES Mar 08, 2024 10:42
[2024-03-08 10:57] LABS: Free T3 2.66 pg/mL (2.3-4.2)
[2024-03-08 10:58] LABS: Free T4 (Free Thyroxine) 1.09 ng/dL (0.89-1.76)
--- NOTE | 2024-03-08 11:55 | DVHINCON2 ---
Date of service: Mar 08, 2024 Referring Physician hospitalist Reason for Consultation GRACE History of Present Illness 68-year-old white male with past medical history of hypertension, congestive heart failure, COPD poor medical follow-up has not seen a primary medical doctor or infection control practitioner in several years presents finding of shortness breath and leg swelling. Nephrology is consulted due to elevated creatinine level. Given patient's poor medical follow-up baseline is unclear but there is evidence of chronic kidney disease. His initial hypervolemic examined echocardiogram that shows an ejection fraction of 20%. Allergies: Coded Allergies: Penicillins (Unverified Allergy, Unknown, 11/30/13) Home Meds Discontinued Reported Medications Enalapril Maleate (Enalapril Maleate) 20 Mg Tab, #90 11/30/13 Carvedilol (Carvedilol) 6.25 Mg Tab, #180 11/30/13 Current Medications Current Medications Medications (Trade) Dose Ordered Sig/Joe Route PRN Reason Start Time Stop Time Status Last Admin Metoprolol Succinate (Toprol Xl) 100 mg DAILY PO 03/08/24 10:00 03/08/24 08:40 Levothyroxine Sodium (Synthroid Tablet) 112 mcg QAM@0600 PO 03/08/24 06:00 03/08/24 05:22 Levothyroxine Sodium (Synthroid Tablet) 25 mcg DAILY@0600 PO 03/08/24 06:00 03/08/24 05:22 Digoxin (Lanoxin Tablet) 0.125 mg MWF PO 03/10/24 10:00 Furosemide (Lasix Injection) 40 mg DAILY IV 03/09/24 10:00 Family History: Patient reports no known family medical history. Review of Systems leg swelling H&P Exam Vital Signs/I&O Vital Sign Date Time Temp Pulse Resp B/P (MAP) Pulse Ox O2 Delivery O2 Flow Rate FiO2 03/08/24 13:20 98.2 56 17 100/77 (85) 94 98.2 03/08/24 13:13 Nasal Cannula 3.0 03/08/24 13:13 32 Intake and Output 03/07/24 03/08/24 18:59 06:59 Intake Total 800 ml 500 ml Output Total 550 ml 225 ml Balance 250 ml 275 ml Intake Oral 800 ml 500 ml Output Urine Total 550 ml 225 ml Physical Exam Elderly white not in overt hypervolemic Bilateral 2+ Irregular rate and rhythm Labs/Diagnostic Data Labs/Diagnostic Data Laboratory Tests Test 03/08/24 06:56 03/07/24 18:16 03/07/24 16:03 03/07/24 15:15 Range/Units White Blood Count 9.5 4.4-10.8 10^3/uL Red Blood Count 4.34 L 4.5-5.90 10^6/uL Hemoglobin 13.0 L 13.5-17.5 g/dL Hematocrit 39.6 L 41.0-53.0 % Mean Corpuscular Volume 91.3 80.0-100.0 fL Mean Corpuscular Hemoglobin 30.0 28.0-32.0 pg Mean Corpuscular Hemoglobin Concent 32.9 32.0-36.0 g/dL Red Cell Distribution Width 15.1 H 11.8-14.3 % Platelet Count 213 140-450 10^3/uL Mean Platelet Volume 10.7 6.9-10.8 fL Neutrophils (%) (Auto) 77.5 37.0-80.0 % Lymphocytes (%) (Auto) 7.6 L 10.0-50.0 % Monocytes (%) (Auto) 14.3 H 0.0-12.0 % Eosinophils (%) (Auto) 0.4 0.0-7.0 % Basophils (%) (Auto) 0.2 0.0-2.0 % Neutrophils # (Auto) 7.4 1.6-8.6 10 ^3/uL Lymphocytes # (Auto) 0.7 0.4-5.4 10 ^3/uL Monocytes # (Auto) 1.4 H 0-1.3 10 ^3/uL Eosinophils # (Auto) 0 0-0.8 10 ^3/uL Basophils # (Auto) 0 0-0.2 10 ^3/uL Nucleated Red Blood Cells 0.2 % Sodium Level 130 L 136-145 mmol/L Potassium Level 4.7 3.5-5.1 mmol/L Chloride Level 91 L 98-107 mmol/L Carbon Dioxide Level 26 20-31 mmol/L Anion Gap 13 5-15 Blood Urea Nitrogen 57 #H 9-23 mg/dL Creatinine 3.37 H 0.700-1.30 mg/dL Glomerular Filtration Rate Calc 19 >90 mL/min BUN/Creatinine Ratio 16.9 10.0-20.0 Serum Glucose 108 H 74-106 mg/dL Calcium Level 9.7 8.7-10.4 mg/dL Influenza Type A Antigen Negative Negative Influenza Type B Antigen Negative Negative D-Dimer, Quantitative 2.17 H 0.0-0.49 mg/L FEU SARS-CoV-2 Antigen (Rapid) Negative NEGATIVE Test 03/07/24 10:00 03/07/24 07:34 03/06/24 09:21 03/06/24 04:05 Range/Units Free Thyroxine (T4) Calculated 1.09 0.89-1.76 ng/dL Free Triiodothyronine (T3) pg/mL 2.66 2.3-4.2 pg/mL White Blood Count 9.1 4.4-10.8 10^3/uL Red Blood Count 4.15 L 4.5-5.90 10^6/uL Hemoglobin 12.3 L 13.5-17.5 g/dL Hematocrit 38.9 L 41.0-53.0 % Mean Corpuscular Volume 93.7 80.0-100.0 fL Mean Corpuscular Hemoglobin 29.7 28.0-32.0 pg Mean Corpuscular Hemoglobin Concent 31.7 L 32.0-36.0 g/dL Red Cell Distribution Width 15.7 H 11.8-14.3 % Platelet Count 218 140-450 10^3/uL Mean Platelet Volume 10.7 6.9-10.8 fL Neutrophils (%) (Auto) 75.2 37.0-80.0 % Lymphocytes (%) (Auto) 9.6 L 10.0-50.0 % Monocytes (%) (Auto) 14.7 H 0.0-12.0 % Eosinophils (%) (Auto) 0.2 0.0-7.0 % Basophils (%) (Auto) 0.3 0.0-2.0 % Neutrophils # (Auto) 6.8 1.6-8.6 10 ^3/uL Lymphocytes # (Auto) 0.9 0.4-5.4 10 ^3/uL Monocytes # (Auto) 1.3 0-1.3 10 ^3/uL Eosinophils # (Auto) 0 0-0.8 10 ^3/uL Basophils # (Auto) 0 0-0.2 10 ^3/uL Nucleated Red Blood Cells 0.3 % Sodium Level 130 L 136-145 mmol/L Potassium Level 4.5 3.5-5.1 mmol/L Chloride Level 94 L 98-107 mmol/L Carbon Dioxide Level 24 20-31 mmol/L Anion Gap 12 5-15 Blood Urea Nitrogen 46 #H 9-23 mg/dL Creatinine 3.16 H 0.700-1.30 mg/dL Glomerular Filtration Rate Calc 20 >90 mL/min BUN/Creatinine Ratio 14.6 10.0-20.0 Serum Glucose 108 H 74-106 mg/dL Calcium Level 9.7 8.7-10.4 mg/dL Total Bilirubin 1.5 H 0.2-1.0 mg/dL Aspartate Amino Transferase (AST) 625 H 13-40 U/L Alanine Aminotransferase (ALT) 515 H 7-40 U/L Alkaline Phosphatase 74 46-116 U/L Total Protein 7.1 5.7-8.2 g/dL Albumin 3.9 3.2-4.8 g/dL Troponin I High Sensitivity 131 *H 100 *H </=54 ng/L Triglycerides Level 111 < 150 mg/dL Cholesterol Level 118 < 200 mg/dL LDL Cholesterol 81 < 100 mg/dL HDL Cholesterol 25 L 40-59 mg/dL Thyroid Stimulating Hormone (TSH) 6.75 H 0.55-4.78 uIU/mL Magnesium Level 2.0 1.6-2.6 mg/dL Test 03/06/24 02:05 03/06/24 01:11 03/06/24 01:02 Range/Units Troponin I High Sensitivity 107 *H 100 *H </=54 ng/L White Blood Count 8.0 4.4-10.8 10^3/uL Red Blood Count 4.14 L 4.5-5.90 10^6/uL Hemoglobin 12.4 L 13.5-17.5 g/dL Hematocrit 38.7 L 41.0-53.0 % Mean Corpuscular Volume 93.5 80.0-100.0 fL Mean Corpuscular Hemoglobin 29.9 28.0-32.0 pg Mean Corpuscular Hemoglobin Concent 32.0 32.0-36.0 g/dL Red Cell Distribution Width 15.2 H 11.8-14.3 % Platelet Count 203 140-450 10^3/uL Mean Platelet Volume 10.8 6.9-10.8 fL Neutrophils (%) (Auto) 76.6 37.0-80.0 % Lymphocytes (%) (Auto) 9.8 L 10.0-50.0 % Monocytes (%) (Auto) 12.8 H 0.0-12.0 % Eosinophils (%) (Auto) 0.3 0.0-7.0 % Basophils (%) (Auto) 0.5 0.0-2.0 % Neutrophils # (Auto) 6.2 1.6-8.6 10 ^3/uL Lymphocytes # (Auto) 0.8 0.4-5.4 10 ^3/uL Monocytes # (Auto) 1.0 0-1.3 10 ^3/uL Eosinophils # (Auto) 0 0-0.8 10 ^3/uL Basophils # (Auto) 0 0-0.2 10 ^3/uL Nucleated Red Blood Cells 0.3 % Sodium Level 134 L 136-145 mmol/L Potassium Level 4.6 3.5-5.1 mmol/L Chloride Level 98 98-107 mmol/L Carbon Dioxide Level 29 20-31 mmol/L Anion Gap 7 5-15 Blood Urea Nitrogen 29 H 9-23 mg/dL Creatinine 2.31 H 0.700-1.30 mg/dL Glomerular Filtration Rate Calc 30 >90 mL/min BUN/Creatinine Ratio 12.6 10.0-20.0 Serum Glucose 116 H 74-106 mg/dL Hemoglobin A1c 5.8 H <5.7 % A1C Calcium Level 10.1 8.7-10.4 mg/dL B-Type Natriuretic Peptide 711.04 0-100 pg/mL Urine Color Yellow Yellow Urine Clarity Clear Clear Urine pH 5.5 5.0-9.0 Urine Specific [place] 1.024 1.001-1.035 Urine Protein 1+ H Negative Urine Ketones Negative Negative Urine Blood 2+ H Negative /uL Urine Nitrite Negative Negative Urine Bilirubin Negative Negative Urine Urobilinogen 2 H Negative mg/dL Urine Leukocyte Esterase Negative Negative /uL Urine RBC 13 0 - 3 /hpf Urine Microscopic WBC 7 H 0-3 /HPF Urine Squamous Epithelial Cells Few <5 /hpf Urine Bacteria None seen None Seen /hpf Urine Hyaline Casts Many 0 - 2 /lpf Urine Mucus Few None Seen Urine Glucose Normal Normal mg/dL Urine Opiates Screen Neg NEGATIVE Urine Fentanyl Screen Neg NEGATIVE Urine Barbiturates Screen Neg NEGATIVE Urine Phencyclidine Screen Neg NEGATIVE Urine Amphetamines Screen Neg NEGATIVE Urine Benzodiazepines Screen Neg NEGATIVE Urine Cocaine Screen Neg NEGATIVE Urine Cannabinoids Screen Neg NEGATIVE Assessment Acute kidney injury hemodynamically mediated Chronic kidney disease Atrial fibrillation with rapid ventricular response Acute systolic decompensated heart failure with ejection fraction 25% Hypotension NSTEMI IV lasix q 12 hrs, increase if unable to achieve 1-2kg neg negative balance per day po metoalazone x 1 today Strict Is&Os Avoid hypotension fluid restriction Cardiology consultation Hyperlipidemia treatment Plan discussed with: Patient SERGIO ORTIZ MD Mar 08, 2024 11:55
[2024-03-08] MEDS: DIGOXIN (250MCG/ML) 2 ML AMPULE IV ONE (12:05)
--- NOTE | 2024-03-08 12:33 | DVHPN2 ---
Reviewed: Care Plan, H&P, Labs, Medications, Previous Orders, Radiology Changes from previous H/P or p: No Changes Eyes: No Pain, No Vision change, No Conjunctivae inflammation, No Eyelid inflammation, No Other, No Redness ENT: No Ear pain, No Ear discharge, No Nose pain, No Nose discharge, No Nose congestion, No Mouth pain, No Mouth swelling, No Throat pain, No Throat swelling, No Other Cardiovascular: No Chest Pain, No Palpitations, No Orthopnea, No Paroxysmal Noc. Dyspnea, No Edema, No Lt Headedness, No Other Respiratory: No Cough, No Dry; Shortness of breath; No SOB with excertion, No Wheezing, No Hemoptysis, No Pleuritic Pain, No Sputum, No Other Gastrointestinal: Nausea; No Vomiting, No Abdominal Pain, No Diarrhea, No Constipation, No Melena, No Hematochezia, No Other Genitourinary: No Dysuria, No Frequency, No Incontinence, No Hematuria, No Retention, No Other Musculoskeletal: No other, No neck pain, No shoulder pain, No arm pain, No back pain, No hand pain, No leg pain, No foot pain Skin: No Rash, No Lesions, No Jaundice, No Bruising; Other Objective Vitals Vital Signs Date Time Temp Pulse Resp B/P (MAP) Pulse Ox O2 Delivery O2 Flow Rate FiO2 03/08/24 10:00 92 Nasal Cannula* 3 32 03/08/24 08:46 98.0 89 18 124/89 (101) 98.0 Intake/Output Intake and Output 03/08/24 07:00 Intake Total 1300 ml Output Total 775 ml Balance 525 ml Intake Oral 1300 ml Output Urine Total 775 ml Medications Current Medications Medications Dose Ordered Sig/Joe Route Start Time Stop Time Status Last Admin Dose Admin Acetaminophen 650 mg Q6HP PRN PO 03/06/24 09:00 03/08/24 08:40 650 MG Ondansetron HCl 4 mg Q4HP PRN IV 03/06/24 09:00 Nitroglycerin 0.4 mg Q5MINP PRN SL 03/06/24 09:00 Morphine Sulfate 2 mg Q30M PRN IV 03/06/24 09:00 Furosemide 40 mg BIDD IV 03/06/24 18:00 03/08/24 05:22 40 MG Albuterol 2.5 mg Q6HWA NEB 03/06/24 12:00 03/08/24 07:01 2.5 MG Albuterol 2.5 mg Q4HPRN PRN NEB 03/06/24 09:00 Ipratropium [place] 0.5 mg Q6HWA [facility] 03/06/24 12:00 03/08/24 07:01 0.5 MG Ipratropium [place] 0.5 mg Q4HPRN PRN NEB 03/06/24 09:00 Apixaban 5 mg BID PO 03/06/24 22:00 03/08/24 08:40 5 MG Atorvastatin Calcium 20 mg HS PO 03/06/24 22:00 03/07/24 21:19 20 MG Metoprolol Succinate 100 mg DAILY PO 03/08/24 10:00 03/08/24 08:40 100 MG Levothyroxine Sodium 112 mcg QAM@0600 PO 03/08/24 06:00 03/08/24 05:22 112 MCG Levothyroxine Sodium 25 mcg DAILY@0600 PO 03/08/24 06:00 03/08/24 05:22 25 MCG Digoxin 0.125 mg MWF PO 03/10/24 10:00 Laboratory Results Laboratory Tests 03/08/24 06:56 Chemistry Test 03/08/24 06:56 Calcium Level 9.7 mg/dL (8.7-10.4) Coagulation Test 03/07/24 16:03 D-Dimer, Quantitative 2.17 mg/L FEU (0.0-0.49) H Urinalysis Test 03/06/24 01:02 Urine Color Yellow (Yellow) Urine Clarity Clear (Clear) Urine pH 5.5 (5.0-9.0) Urine Specific [place] 1.024 (1.001-1.035) Urine Protein 1+ (Negative) H Urine Ketones Negative (Negative) Urine Blood 2+ /uL (Negative) H Urine Nitrite Negative (Negative) Urine Bilirubin Negative (Negative) Urine Urobilinogen 2 mg/dL (Negative) H Urine Leukocyte Esterase Negative /uL (Negative) Urine RBC 13 /hpf (0 - 3) Urine Microscopic WBC 7 /HPF (0-3) H Urine Squamous Epithelial Cells Few /hpf (<5) Urine Bacteria None seen /hpf (None Seen) Urine Hyaline Casts Many /lpf (0 - 2) Urine Mucus Few (None Seen) Urine Glucose Normal mg/dL (Normal) Labs and/or images reviewed: Labs reviewed by me, Image(s) reviewed by me Assessment/Plan Assessment/Plan Atrial fibrillation with rapid ventricular response, ?newly diagnosed, Eliquis, metoprolol Acute on chronic decompensated HFrEF, NYHA class III, ejection fraction 20% cardiology consult appreciated NSTEMI, likely type II secondary to above Hypertension Hypothyroidism TSH 6.75: Synthroid Peripheral arterial disease s/p right leg stent Pulmonary hypertension COPD with home oxygen dependence Acute kidney injury versus chronic kidney disease History of heavy tobacco use Morbid obesity Susan test negative Flu test negative Patient thinking of going AMA to go to his home computer to take care of his properties at [place]. Plan discussed with: Patient My Orders Orders - KORY ARCE MD Procedure Category Date Status Time * Fire Prevention Inspector CONS 03/07/24 Transmitted Consult Levothyroxine Tablet PHA 03/08/24 In Process (Synthroid Tablet) 06:00 Levothyroxine Tablet PHA 03/08/24 In Process (Synthroid Tablet) 06:00 Date of Service: Mar 08, 2024 Billing Provider: KORY ARCE MD Common Visit Codes: [id number] INP/OBS CARE(HIGH) KORY ARCE MD Mar 08, 2024 12:33
[2024-03-08] MEDS: metOLazone 5 MG TAB PO ONE (18:24)
[2024-03-09] VITALS (17 sets, daily range): BP systolic 98–140; BP diastolic 58–80; PULSE 55–105; RESP 16–20; TEMP 98–98.2; O2SAT 92–97
[2024-03-09 08:19] LABS: Anion Gap 8 (5-15); Calcium 9.3 mg/dL (8.7-10.4); Carbon Dioxide 30 mmol/L (20-31)
[2024-03-09 08:23] LABS: Chloride 93 mmol/L (98-107); Sodium 131 mmol/L (136-145)
[2024-03-09 08:24] LABS: BUN/Creatinine Ratio 19.1 (10.0-20.0); Glucose 90 mg/dL (74-106)
[2024-03-09 08:26] LABS: Blood Urea Nitrogen 54 mg/dL (9-23)
[2024-03-09] MEDS ORDERED: FUROSEMIDE 40 MG/4 ML VIAL IV SCH (10:00)
--- NOTE | 2024-03-09 10:00 | ECG ---
[facility] Test Date: 2024-03-06 Test Time: 01:42:50 Pat Name: ARNALDO MIRANDA Department: ER Room: 0278T A Gender: M Inhalation Therapy Aide: : 1955 Requested By: EMERGENCY EMERGENCY Order Number: [id number] Reading MD: Colton Carreon Measurements Intervals [place] Rate: 137 P: 0 AR: 0 QRS: -28 QRSD: 94 T: 89 QT: 319 QTc: 482 Interpretive Statements Atrial fibrillation Ventricular premature complex Borderline left axis deviation Nonspecific T abnormalities, lateral leads Borderline prolonged QT interval Electronically Signed On 03-10-2024 8:47:17 PST by Colton Carreon Please click the below link to view image of tracing.
--- NOTE | 2024-03-09 10:15 | DVHPN2 ---
Consult Progress Note Date Seen: Mar 09, 2024 Subjective Review of Systems: CVS:Normal, RESPIRATORY:Normal, NEURO:Normal Other Systems: Notified of LUE amiodarone extravasation Objective vital signs Vital Sign Date Time Temp Pulse Resp B/P (MAP) Pulse Ox O2 Delivery O2 Flow Rate FiO2 03/09/24 08:44 98.1 70 18 101/80 (87) 92 98.1 03/09/24 06:49 Nasal Cannula* 3 32 Total Intake and Output 03/08/24 03/08/24 03/09/24 14:59 22:59 06:59 Intake Total 800 ml 450 ml Output Total 500 ml 2300 ml Balance 300 ml -1850 ml medications Current Medications Medications Dose Ordered Sig/Joe Route Start Time Stop Time Status Last Admin Dose Admin Acetaminophen 650 mg Q6HP PRN PO 03/06/24 09:00 03/08/24 08:40 650 MG Ondansetron HCl 4 mg Q4HP PRN IV 03/06/24 09:00 Nitroglycerin 0.4 mg Q5MINP PRN SL 03/06/24 09:00 Morphine Sulfate 2 mg Q30M PRN IV 03/06/24 09:00 Albuterol 2.5 mg Q6HWA [facility] 03/06/24 12:00 03/08/24 18:54 2.5 MG Albuterol 2.5 mg Q4HPRN PRN NEB 03/06/24 09:00 Ipratropium [place] 0.5 mg Q6HWA [facility] 03/06/24 12:00 03/09/24 06:49 0.5 MG Ipratropium [place] 0.5 mg Q4HPRN PRN [facility] 03/06/24 09:00 Apixaban 5 mg BID PO 03/06/24 22:00 03/08/24 21:00 5 MG Atorvastatin Calcium 20 mg HS PO 03/06/24 22:00 03/08/24 20:59 20 MG Metoprolol Succinate 100 mg DAILY PO 03/08/24 10:00 03/08/24 08:40 100 MG Levothyroxine Sodium 112 mcg QAM@0600 PO 03/08/24 06:00 03/09/24 05:57 112 MCG Levothyroxine Sodium 25 mcg DAILY@0600 PO 03/08/24 06:00 03/09/24 05:57 25 MCG Digoxin 0.125 mg MWF PO 03/10/24 10:00 Furosemide 40 mg BIDD IV 03/09/24 10:00 Examination: GENERAL:Abnormal (Anxious), LUNGS:Normal, CVS:Normal (A-fib controlled rate), SKIN:Abnormal (LUE erythema/swelling), NEURO:Normal laboratory and microbiology Laboratory Tests 03/09/24 07:34 03/08/24 06:56 Test 03/09/24 07:34 Range/Units Serum Glucose 90 74-106 mg/dL Problem List/Assessment/Plan Problem List/Assessment/Plan NSTEMI, questionable Type I Atrial fibrillation with rapid ventricular response, newly diagnosed Acute on chronic decompensated HFrEF, NYHA class III Non-sustained ventricular tachycardia Peripheral arterial disease s/p right leg stent Pulmonary hypertension, moderate degree COPD with home oxygen dependence Hypertension GRACE on CKD Transaminitis History of heavy tobacco use Morbid obesity Plan/Recommendation (Dr. Carreon) * Echocardiogram reveals EF 20-25% with severe global hypokinesis and RVSP 40- 50mmHg * Guideline directed medical therapy for CHF as renal function permits * Strict intake and output, daily weights, maintain fluid restriction * NOAC therapy, Eliquis BID * [id number] VASc score: 3 points * Rate control, beta-geno and digoxin therapy M-W- * Replete electrolytes as needed, k>4 and Mg>2 * Initiate protocol for amiodarone extravasation * Continue with Nephrology consultation Highly suspected for underlined coronary artery disease. The patient denies undergoing invasive cardiac procedures in the past. He can benefit from ischemic work-up as renal function permits. Thank you for allowing us to care for this patient. Please call with any questions or concerns. This medical document was created using an electronic medical record system with voice recognition software and computerized dictation system. Although this document has been carefully reviewed, there might still be some phonetic and typographical errors. Occasional wrong-word or ``sound-alike substitutions may have occurred due to the inherent limitations of voice recognition software. These areas are purely typographical due to imperfections of the software programs and do not reflect any compromise in the patient's medical care. Please read the chart carefully and recognize, using context, where these substitutions have occurred. Plan discussed with: Patient, Other Date of Service: Mar 09, 2024 Billing Provider: ROBLES,JP TONGUE STITCHER Cardiology Common Codes: [id number] HOSP CARE(JP Bella TONGUE STITCHER Mar 09, 2024 10:15
[2024-03-09] MEDS: FUROSEMIDE 40 MG/4 ML VIAL IV SCH (10:57)
[2024-03-09] MEDS: metOLazone 5 MG TAB PO ONE (10:59)
--- NOTE | 2024-03-09 12:04 | DVHPN2 ---
Reviewed: Care Plan, H&P, Labs, Medications, Previous Orders, Radiology Changes from previous H/P or p: No Changes Eyes: No Pain, No Vision change, No Conjunctivae inflammation, No Eyelid inflammation, No Other, No Redness ENT: No Ear pain, No Ear discharge, No Nose pain, No Nose discharge, No Nose congestion, No Mouth pain, No Mouth swelling, No Throat pain, No Throat swelling, No Other Cardiovascular: No Chest Pain, No Palpitations, No Orthopnea, No Paroxysmal Noc. Dyspnea, No Edema, No Lt Headedness, No Other Respiratory: No Cough, No Dry; Shortness of breath; No SOB with excertion, No Wheezing, No Hemoptysis, No Pleuritic Pain, No Sputum, No Other Gastrointestinal: Nausea; No Vomiting, No Abdominal Pain, No Diarrhea, No Constipation, No Melena, No Hematochezia, No Other Genitourinary: No Dysuria, No Frequency, No Incontinence, No Hematuria, No Retention, No Other Musculoskeletal: No other, No neck pain, No shoulder pain, No arm pain, No back pain, No hand pain, No leg pain, No foot pain Skin: No Rash, No Lesions, No Jaundice, No Bruising; Other Objective Vitals Vital Signs Date Time Temp Pulse Resp B/P (MAP) Pulse Ox O2 Delivery O2 Flow Rate FiO2 03/09/24 11:44 77 16 96 03/09/24 11:37 Nasal Cannula* 3 32 03/09/24 10:59 111/76 03/09/24 08:44 98.1 98.1 Intake/Output Intake and Output 03/09/24 07:00 Intake Total 1250 ml Output Total 2800 ml Balance -1550 ml Intake Oral 1050 ml IV Total 200 ml Output Urine Total 2800 ml Medications Current Medications Medications Dose Ordered Sig/Joe Route Start Time Stop Time Status Last Admin Dose Admin Acetaminophen 650 mg Q6HP PRN PO 03/06/24 09:00 03/08/24 08:40 650 MG Ondansetron HCl 4 mg Q4HP PRN IV 03/06/24 09:00 Nitroglycerin 0.4 mg Q5MINP PRN SL 03/06/24 09:00 Morphine Sulfate 2 mg Q30M PRN IV 03/06/24 09:00 Albuterol 2.5 mg Q6HWA NEB 03/06/24 12:00 03/09/24 11:37 2.5 MG Albuterol 2.5 mg Q4HPRN PRN NEB 03/06/24 09:00 Ipratropium [place] 0.5 mg Q6HWA NEB 03/06/24 12:00 03/09/24 11:37 0.5 MG Ipratropium [place] 0.5 mg Q4HPRN PRN NEB 03/06/24 09:00 Apixaban 5 mg BID PO 03/06/24 22:00 03/09/24 10:59 5 MG Atorvastatin Calcium 20 mg HS PO 03/06/24 22:00 03/08/24 20:59 20 MG Metoprolol Succinate 100 mg DAILY PO 03/08/24 10:00 03/09/24 10:58 100 MG Levothyroxine Sodium 112 mcg QAM@0600 PO 03/08/24 06:00 03/09/24 05:57 112 MCG Levothyroxine Sodium 25 mcg DAILY@0600 PO 03/08/24 06:00 03/09/24 05:57 25 MCG Digoxin 0.125 mg MWF PO 03/10/24 10:00 Furosemide 40 mg BIDD IV 03/09/24 10:00 03/09/24 10:57 40 MG Laboratory Results Laboratory Tests 03/08/24 06:56 03/09/24 07:34 Chemistry Test 03/09/24 07:34 Calcium Level 9.3 mg/dL (8.7-10.4) Urinalysis Test 03/06/24 01:02 Urine Color Yellow (Yellow) Urine Clarity Clear (Clear) Urine pH 5.5 (5.0-9.0) Urine Specific [place] 1.024 (1.001-1.035) Urine Protein 1+ (Negative) H Urine Ketones Negative (Negative) Urine Blood 2+ /uL (Negative) H Urine Nitrite Negative (Negative) Urine Bilirubin Negative (Negative) Urine Urobilinogen 2 mg/dL (Negative) H Urine Leukocyte Esterase Negative /uL (Negative) Urine RBC 13 /hpf (0 - 3) Urine Microscopic WBC 7 /HPF (0-3) H Urine Squamous Epithelial Cells Few /hpf (<5) Urine Bacteria None seen /hpf (None Seen) Urine Hyaline Casts Many /lpf (0 - 2) Urine Mucus Few (None Seen) Urine Glucose Normal mg/dL (Normal) Labs and/or images reviewed: Labs reviewed by me, Image(s) reviewed by me Assessment/Plan Assessment/Plan Atrial fibrillation with rapid ventricular response, ?newly diagnosed, Eliquis, metoprolol Acute on chronic decompensated HFrEF, NYHA class III, ejection fraction 20% cardiology consult appreciated NSTEMI, likely type II secondary to above Hypertension Hypothyroidism TSH 6.75: Synthroid Peripheral arterial disease s/p right leg stent Pulmonary hypertension COPD with home oxygen dependence Acute kidney injury versus chronic kidney disease nephrology consult appreciated placed on Lasix twice a day and metolazone tablet History of heavy tobacco use Morbid obesity Susan test negative Flu test negative Per Cardiology patient is a candidate for left heart catheterization once kidney function is stable Time Spent 65 minutes Full code Advanced care planning time 20 minutes Plan discussed with: Patient Date of Service: Mar 09, 2024 Billing Provider: KORY ARCE MD Common Visit Codes: [id number] CARE 30-74 MIN KORY ARCE MD Mar 09, 2024 12:04
[2024-03-09] MEDS: HYALURONIDASE 150 UNIT/1 ML SUBCUT ONE (16:01)
[2024-03-10] VITALS (19 sets, daily range): BP systolic 99–116; BP diastolic 58–74; PULSE 58–103; RESP 16–20; TEMP 97.5–98.4; O2SAT 93–100
[2024-03-10 07:34] LABS: Basophils # (auto) 0 10 ^3/uL (0-0.2); Basophils % (auto) 0.3 % (0.0-2.0); Eosinophils # (auto) 0.3 10 ^3/uL (0-0.8); Eosinophils % (auto) 3.7 % (0.0-7.0); Hematocrit 38.5 % (41.0-53.0); Hemoglobin 12.9 g/dL (13.5-17.5); Lymphocytes # (auto) 0.6 10 ^3/uL (0.4-5.4); Lymphocytes % (auto) 7.7 % (10.0-50.0); Mean Corpuscular Hemoglobin 29.9 pg (28.0-32.0); Mean Corpuscular Hgb Conc. 33.5 g/dL (32.0-36.0); Mean Corpuscular Volume 89.3 fL (80.0-100.0); Monocytes # (auto) 1.1 10 ^3/uL (0-1.3); Monocytes % (auto) 14.4 % (0.0-12.0); Neutrophils # (auto) 5.6 10 ^3/uL (1.6-8.6); Neutrophils % (auto) 73.9 % (37.0-80.0); Nucleated Red Blood Cells % 0.2 %; Platelet Count (auto) 175 10^3/uL (140-450); Red Blood Cells 4.31 10^6/uL (4.5-5.90); White Blood Cell 7.6 10^3/uL (4.4-10.8)
[2024-03-10 07:42] LABS: Albumin 3.6 g/dL (3.2-4.8); Alkaline Phosphatase 87 U/L (46-116); Anion Gap 8 (5-15); Calcium 9.9 mg/dL (8.7-10.4); Glucose 96 mg/dL (74-106); Magnesium 1.9 mg/dL (1.6-2.6)
[2024-03-10 07:43] LABS: Total Protein 6.7 g/dL (5.7-8.2)
[2024-03-10 07:47] LABS: Alanine Aminotransferase 357 U/L (7-40); Aspartate Aminotransferase 161 U/L (13-40); Blood Urea Nitrogen 60 mg/dL (9-23); Carbon Dioxide 35 mmol/L (20-31); Chloride 90 mmol/L (98-107); Potassium 3.3 mmol/L (3.5-5.1); Sodium 133 mmol/L (136-145)
--- NOTE | 2024-03-10 08:57 | DVHPN2 ---
Consult Progress Note Date Seen: Mar 10, 2024 Subjective Review of Systems: CVS:Normal, RESPIRATORY:Normal, NEURO:Normal Objective vital signs Vital Sign Date Time Temp Pulse Resp B/P (MAP) Pulse Ox O2 Delivery O2 Flow Rate FiO2 03/10/24 06:16 87 20 95 03/10/24 06:10 Nasal Cannula* 3 32 03/10/24 05:42 107/59 03/10/24 05:00 98.3 98.3 Total Intake and Output 03/09/24 03/09/24 03/10/24 15:00 23:00 07:00 Intake Total 600 ml 400 ml Output Total 2400 ml 2250 ml Balance -1800 ml -1850 ml medications Current Medications Medications Dose Ordered Sig/Joe Route Start Time Stop Time Status Last Admin Dose Admin Acetaminophen 650 mg Q6HP PRN PO 03/06/24 09:00 03/08/24 08:40 650 MG Ondansetron HCl 4 mg Q4HP PRN IV 03/06/24 09:00 Nitroglycerin 0.4 mg Q5MINP PRN SL 03/06/24 09:00 Morphine Sulfate 2 mg Q30M PRN IV 03/06/24 09:00 Albuterol 2.5 mg Q6HWA [facility] 03/06/24 12:00 03/10/24 06:10 2.5 MG Albuterol 2.5 mg Q4HPRN PRN NEB 03/06/24 09:00 Ipratropium [place] 0.5 mg Q6HWA [facility] 03/06/24 12:00 03/10/24 06:10 0.5 MG Ipratropium [place] 0.5 mg Q4HPRN PRN [facility] 03/06/24 09:00 Apixaban 5 mg BID PO 03/06/24 22:00 03/09/24 20:21 5 MG Atorvastatin Calcium 20 mg HS PO 03/06/24 22:00 03/09/24 20:22 20 MG Metoprolol Succinate 100 mg DAILY PO 03/08/24 10:00 03/09/24 10:58 100 MG Levothyroxine Sodium 112 mcg QAM@0600 PO 03/08/24 06:00 03/10/24 05:43 112 MCG Levothyroxine Sodium 25 mcg DAILY@0600 PO 03/08/24 06:00 03/10/24 05:43 25 MCG Digoxin 0.125 mg MWF PO 03/10/24 10:00 Furosemide 40 mg BIDD IV 03/09/24 10:00 03/10/24 05:42 40 MG Examination: LUNGS:Normal, CVS:Abnormal (A-fib 90s-110s bpm. NSVT. BLE edema improved), NEURO:Normal laboratory and microbiology Laboratory Tests 03/10/24 07:03 Test 03/10/24 07:03 Range/Units Serum Glucose 96 74-106 mg/dL Problem List/Assessment/Plan Problem List/Assessment/Plan NSTEMI, questionable Type I Atrial fibrillation with rapid ventricular response, newly diagnosed Acute on chronic decompensated HFrEF, NYHA class III Non-sustained ventricular tachycardia Peripheral arterial disease s/p right leg stent Pulmonary hypertension, moderate degree COPD with home oxygen dependence Hypertension GRACE on CKD Transaminitis History of heavy tobacco use Morbid obesity Plan/Recommendation (Dr. Koo) * Echocardiogram reveals EF 20-25% with severe global hypokinesis and RVSP 40- 50mmHg * Guideline directed medical therapy for CHF as renal function permits * Strict intake and output, daily weights, maintain fluid restriction * NOAC therapy, Eliquis BID * [id number] VASc score: 3 points * Rate control, beta-geno and digoxin therapy M-W- * Antiarrhythmic, transition to amiodarone p.o. * Replete electrolytes as needed, k>4 and Mg>2 * Continue with Nephrology consultation Highly suspected for underlined coronary artery disease. The patient denies undergoing invasive cardiac procedures in the past. He can benefit from ischemic work-up as renal function permits. Thank you for allowing us to care for this patient. Please call with any questions or concerns. This medical document was created using an electronic medical record system with voice recognition software and computerized dictation system. Although this document has been carefully reviewed, there might still be some phonetic and typographical errors. Occasional wrong-word or ``sound-alike substitutions may have occurred due to the inherent limitations of voice recognition software. These areas are purely typographical due to imperfections of the software programs and do not reflect any compromise in the patient's medical care. Please read the chart carefully and recognize, using context, where these substitutions have occurred. Plan discussed with: Patient, Other Date of Service: Mar 10, 2024 Billing Provider: JP ROBLES Cardiology Common Codes: [id number] HOSP CARE(JP Bella Mar 10, 2024 08:56
[2024-03-10] MEDS: POTASSIUM CHL 20 Meq TABLET PO ONE (10:10)
[2024-03-10] MEDS: AMIODARONE HCL 200 MG TAB PO SCH (10:11)
[2024-03-10] MEDS: DIGOXIN 0.125 MG TAB PO SCH (10:11)
--- NOTE | 2024-03-10 10:58 | DVHPN2 ---
Reviewed: Care Plan, H&P, Labs, Medications, Previous Orders, Radiology Changes from previous H/P or p: No Changes Eyes: No Pain, No Vision change, No Conjunctivae inflammation, No Eyelid inflammation, No Other, No Redness ENT: No Ear pain, No Ear discharge, No Nose pain, No Nose discharge, No Nose congestion, No Mouth pain, No Mouth swelling, No Throat pain, No Throat swelling, No Other Cardiovascular: No Chest Pain, No Palpitations, No Orthopnea, No Paroxysmal Noc. Dyspnea, No Edema, No Lt Headedness, No Other Respiratory: No Cough, No Dry; Shortness of breath; No SOB with excertion, No Wheezing, No Hemoptysis, No Pleuritic Pain, No Sputum, No Other Gastrointestinal: Nausea; No Vomiting, No Abdominal Pain, No Diarrhea, No Constipation, No Melena, No Hematochezia, No Other Genitourinary: No Dysuria, No Frequency, No Incontinence, No Hematuria, No Retention, No Other Musculoskeletal: No other, No neck pain, No shoulder pain, No arm pain, No back pain, No hand pain, No leg pain, No foot pain Skin: No Rash, No Lesions, No Jaundice, No Bruising; Other Objective Vitals Vital Signs Date Time Temp Pulse Resp B/P (MAP) Pulse Ox O2 Delivery O2 Flow Rate FiO2 03/10/24 10:11 96 03/10/24 10:10 106/70 03/10/24 09:00 97.7 16 95 97.7 03/10/24 06:10 Nasal Cannula* 3 32 Intake/Output Intake and Output 03/10/24 07:00 Intake Total 1000 ml Output Total 4650 ml Balance -3650 ml Intake Oral 1000 ml Output Urine Total 4650 ml Medications Current Medications Medications Dose Ordered Sig/Joe Route Start Time Stop Time Status Last Admin Dose Admin Acetaminophen 650 mg Q6HP PRN PO 03/06/24 09:00 03/08/24 08:40 650 MG Ondansetron HCl 4 mg Q4HP PRN IV 03/06/24 09:00 Nitroglycerin 0.4 mg Q5MINP PRN SL 03/06/24 09:00 Morphine Sulfate 2 mg Q30M PRN IV 03/06/24 09:00 Albuterol 2.5 mg Q6HWA NEB 03/06/24 12:00 03/10/24 06:10 2.5 MG Albuterol 2.5 mg Q4HPRN PRN NEB 03/06/24 09:00 Ipratropium [place] 0.5 mg Q6HWA NEB 03/06/24 12:00 03/10/24 06:10 0.5 MG Ipratropium [place] 0.5 mg Q4HPRN PRN NEB 03/06/24 09:00 Apixaban 5 mg BID PO 03/06/24 22:00 03/10/24 10:11 5 MG Atorvastatin Calcium 20 mg HS PO 03/06/24 22:00 03/09/24 20:22 20 MG Metoprolol Succinate 100 mg DAILY PO 03/08/24 10:00 03/10/24 10:10 100 MG Levothyroxine Sodium 112 mcg QAM@0600 PO 03/08/24 06:00 03/10/24 05:43 112 MCG Levothyroxine Sodium 25 mcg DAILY@0600 PO 03/08/24 06:00 03/10/24 05:43 25 MCG Digoxin 0.125 mg MWF PO 03/10/24 10:00 03/10/24 10:11 0.125 MG Furosemide 40 mg BIDD IV 03/09/24 10:00 03/10/24 05:42 40 MG Amiodarone HCl 200 mg Q12HR PO 03/10/24 11:30 03/10/24 10:11 200 MG Laboratory Results Laboratory Tests 03/10/24 07:03 Chemistry Test 03/10/24 07:03 Albumin 3.6 g/dL (3.2-4.8) Calcium Level 9.9 mg/dL (8.7-10.4) Magnesium Level 1.9 mg/dL (1.6-2.6) Total Protein 6.7 g/dL (5.7-8.2) Cardiac Markers Test 03/10/24 07:03 B-Type Natriuretic Peptide 1591.04 pg/mL (0-100) LFT Test 03/10/24 07:03 Alanine Aminotransferase (ALT) 357 U/L (7-40) H Alkaline Phosphatase 87 U/L (46-116) Aspartate Amino Transferase (AST) 161 U/L (13-40) H Total Bilirubin 1.0 mg/dL (0.2-1.0) Urinalysis Test 03/06/24 01:02 Urine Color Yellow (Yellow) Urine Clarity Clear (Clear) Urine pH 5.5 (5.0-9.0) Urine Specific [place] 1.024 (1.001-1.035) Urine Protein 1+ (Negative) H Urine Ketones Negative (Negative) Urine Blood 2+ /uL (Negative) H Urine Nitrite Negative (Negative) Urine Bilirubin Negative (Negative) Urine Urobilinogen 2 mg/dL (Negative) H Urine Leukocyte Esterase Negative /uL (Negative) Urine RBC 13 /hpf (0 - 3) Urine Microscopic WBC 7 /HPF (0-3) H Urine Squamous Epithelial Cells Few /hpf (<5) Urine Bacteria None seen /hpf (None Seen) Urine Hyaline Casts Many /lpf (0 - 2) Urine Mucus Few (None Seen) Urine Glucose Normal mg/dL (Normal) Labs and/or images reviewed: Labs reviewed by me, Image(s) reviewed by me Assessment/Plan Assessment/Plan Atrial fibrillation with rapid ventricular response, ?newly diagnosed, Eliquis, metoprolol digoxin 3 times a week amiodarone tablets Acute on chronic decompensated HFrEF, NYHA class III, ejection fraction 20% cardiology consult appreciated NSTEMI, possibly type 1 Hypertension Hypothyroidism TSH 6.75: Synthroid Peripheral arterial disease s/p right leg stent Pulmonary hypertension COPD with home oxygen dependence Acute kidney injury versus chronic kidney disease nephrology consult appreciated placed on Lasix twice a day and metolazone tablet History of heavy tobacco use Morbid obesity Susan test negative Flu test negative Per Cardiology patient is a candidate for left heart catheterization once kidney function is stable Time Spent 65 minutes Full code Patient does not have a PCP, social service consult placed Advanced care planning time 20 minutes Pts daughter WON [phone] at bedside Plan discussed with: Patient Date of Service: Mar 10, 2024 Billing Provider: KORY ARCE MD Common Visit Codes: [id number] INP/OBS CARE(HIGH) KORY ARCE MD Mar 10, 2024 10:58
--- NOTE | 2024-03-10 14:20 | DVHPN2 ---
Progress Note Date Seen: Mar 09, 2024 Medical Necessity Reason Pt with a Central, PICC or Fol: Yes The following are medically ne: Mejia Catheter Subjective Patient reports: Feels better Objective vital signs Vital Sign Date Time Temp Pulse Resp B/P (MAP) Pulse Ox O2 Delivery O2 Flow Rate FiO2 03/10/24 12:46 89 18 100 03/10/24 12:41 Nasal Cannula* 3 32 03/10/24 11:59 98.0 111/58 (75) 98.0 Total Intake and Output 03/09/24 03/09/24 03/10/24 15:00 23:00 07:00 Intake Total 600 ml 400 ml Output Total 2400 ml 2250 ml Balance -1800 ml -1850 ml medications Current Medications Medications Dose Ordered Sig/Joe Route Start Time Stop Time Status Last Admin Dose Admin Acetaminophen 650 mg Q6HP PRN PO 03/06/24 09:00 03/08/24 08:40 650 MG Ondansetron HCl 4 mg Q4HP PRN IV 03/06/24 09:00 Nitroglycerin 0.4 mg Q5MINP PRN SL 03/06/24 09:00 Morphine Sulfate 2 mg Q30M PRN IV 03/06/24 09:00 Albuterol 2.5 mg Q6HWA [facility] 03/06/24 12:00 03/10/24 12:41 2.5 MG Albuterol 2.5 mg Q4HPRN PRN [facility] 03/06/24 09:00 Ipratropium [place] 0.5 mg Q6HWA [facility] 03/06/24 12:00 03/10/24 12:41 0.5 MG Ipratropium [place] 0.5 mg Q4HPRN PRN [facility] 03/06/24 09:00 Apixaban 5 mg BID PO 03/06/24 22:00 03/10/24 10:11 5 MG Atorvastatin Calcium 20 mg HS PO 03/06/24 22:00 03/09/24 20:22 20 MG Metoprolol Succinate 100 mg DAILY PO 03/08/24 10:00 03/10/24 10:10 100 MG Levothyroxine Sodium 112 mcg QAM@0600 PO 03/08/24 06:00 03/10/24 05:43 112 MCG Levothyroxine Sodium 25 mcg DAILY@0600 PO 03/08/24 06:00 03/10/24 05:43 25 MCG Digoxin 0.125 mg MWF PO 03/10/24 10:00 03/10/24 10:11 0.125 MG Furosemide 40 mg BIDD IV 03/09/24 10:00 03/10/24 05:42 40 MG Amiodarone HCl 200 mg Q12HR PO 03/10/24 11:30 03/10/24 10:11 200 MG Examination: GENERAL:Normal, SKIN:Abnormal laboratory and microbiology Laboratory Tests 03/10/24 07:03 Test 03/10/24 07:03 Range/Units Serum Glucose 96 74-106 mg/dL Problem List/Assessment/Plan Problem List/Assessment/Plan Acute kidney injury hemodynamically mediated Chronic kidney disease Atrial fibrillation with rapid ventricular response Acute systolic decompensated heart failure with ejection fraction 25% Hypotension NSTEMI IV lasix q 12 hrs, increase if unable to achieve 1-2kg neg negative balance per day po metoalazone x 1 today Strict Is&Os Avoid hypotension fluid restriction Cardiology consultation Hyperlipidemia treatment Plan discussed with: Patient My Orders My Orders Orders - SERGIO ORTIZ MD Procedure Category Date Status Time D/C Roberto RICHMOND 03/10/24 In Process 13:58 SERGIO ORTIZ MD Mar 10, 2024 14:20
--- NOTE | 2024-03-10 14:23 | DVHPN2 ---
Progress Note Date Seen: Mar 10, 2024 Medical Necessity Reason Pt with a Central, PICC or Fol: Yes The following are medically ne: Victor Catheter Subjective Patient reports: Feels better Objective vital signs Vital Sign Date Time Temp Pulse Resp B/P (MAP) Pulse Ox O2 Delivery O2 Flow Rate FiO2 03/10/24 12:46 89 18 100 03/10/24 12:41 Nasal Cannula* 3 32 03/10/24 11:59 98.0 111/58 (75) 98.0 Total Intake and Output 03/09/24 03/09/24 03/10/24 15:00 23:00 07:00 Intake Total 600 ml 400 ml Output Total 2400 ml 2250 ml Balance -1800 ml -1850 ml medications Current Medications Medications Dose Ordered Sig/Joe Route Start Time Stop Time Status Last Admin Dose Admin Acetaminophen 650 mg Q6HP PRN PO 03/06/24 09:00 03/08/24 08:40 650 MG Ondansetron HCl 4 mg Q4HP PRN IV 03/06/24 09:00 Nitroglycerin 0.4 mg Q5MINP PRN SL 03/06/24 09:00 Morphine Sulfate 2 mg Q30M PRN IV 03/06/24 09:00 Albuterol 2.5 mg Q6HWA [facility] 03/06/24 12:00 03/10/24 12:41 2.5 MG Albuterol 2.5 mg Q4HPRN PRN [facility] 03/06/24 09:00 Ipratropium [place] 0.5 mg Q6HWA [facility] 03/06/24 12:00 03/10/24 12:41 0.5 MG Ipratropium [place] 0.5 mg Q4HPRN PRN [facility] 03/06/24 09:00 Apixaban 5 mg BID PO 03/06/24 22:00 03/10/24 10:11 5 MG Atorvastatin Calcium 20 mg HS PO 03/06/24 22:00 03/09/24 20:22 20 MG Metoprolol Succinate 100 mg DAILY PO 03/08/24 10:00 03/10/24 10:10 100 MG Levothyroxine Sodium 112 mcg QAM@0600 PO 03/08/24 06:00 03/10/24 05:43 112 MCG Levothyroxine Sodium 25 mcg DAILY@0600 PO 03/08/24 06:00 03/10/24 05:43 25 MCG Digoxin 0.125 mg MWF PO 03/10/24 10:00 03/10/24 10:11 0.125 MG Furosemide 40 mg BIDD IV 03/09/24 10:00 03/10/24 05:42 40 MG Amiodarone HCl 200 mg Q12HR PO 03/10/24 11:30 03/10/24 10:11 200 MG Examination: GENERAL:Normal, HEENT:Normal, LUNGS:Normal, CVS:Normal, ABDOMEN:Normal, SKIN:Normal laboratory and microbiology Laboratory Tests 03/10/24 07:03 Test 03/10/24 07:03 Range/Units Serum Glucose 96 74-106 mg/dL Problem List/Assessment/Plan Problem List/Assessment/Plan Acute kidney injury hemodynamically mediated Chronic kidney disease Atrial fibrillation with rapid ventricular response Acute systolic decompensated heart failure with ejection fraction 25% Hypotension NSTEMI transition to po diuretics. I explained in outpatient should take lasix BID dc victor GRACE is improving edema is improving Strict Is&Os Avoid hypotension fluid restriction Cardiology consultation on amio Plan discussed with: Patient, Daughter My Orders My Orders Orders - SERGIO ORTIZ MD Procedure Category Date Status Time D/C Roberto RICHMOND 03/10/24 In Process 13:58 SERGIO ORTIZ MD Mar 10, 2024 14:23
[2024-03-10] MEDS: FUROSEMIDE 20 MG TAB PO SCH (18:41)
[2024-03-10] MEDS: ENOXAPARIN SOD 150 MG/1 ML SYRINGE SC SCH (21:24)
[2024-03-11] VITALS (10 sets, daily range): BP systolic 95–110; BP diastolic 57–61; PULSE 66–106; RESP 18–21; TEMP 97.5–98.1; O2SAT 94–98
[2024-03-11 08:21] LABS: Basophils # (auto) 0 10 ^3/uL (0-0.2); Basophils % (auto) 0.3 % (0.0-2.0); Eosinophils # (auto) 0.3 10 ^3/uL (0-0.8); Eosinophils % (auto) 4.8 % (0.0-7.0); Hematocrit 38.4 % (41.0-53.0); Hemoglobin 12.5 g/dL (13.5-17.5); Lymphocytes # (auto) 0.7 10 ^3/uL (0.4-5.4); Lymphocytes % (auto) 10.1 % (10.0-50.0); Mean Corpuscular Hemoglobin 29.6 pg (28.0-32.0); Mean Corpuscular Hgb Conc. 32.5 g/dL (32.0-36.0); Mean Corpuscular Volume 90.8 fL (80.0-100.0); Monocytes # (auto) 1.1 10 ^3/uL (0-1.3); Monocytes % (auto) 15.9 % (0.0-12.0); Neutrophils # (auto) 4.7 10 ^3/uL (1.6-8.6); Neutrophils % (auto) 68.9 % (37.0-80.0); Nucleated Red Blood Cells % 0.1 %; Platelet Count (auto) 167 10^3/uL (140-450); Red Blood Cells 4.23 10^6/uL (4.5-5.90); Red Cell Distribution Width 15.1 % (11.8-14.3); White Blood Cell 6.8 10^3/uL (4.4-10.8)
[2024-03-11 08:46] LABS: Alkaline Phosphatase 80 U/L (46-116); Anion Gap 9 (5-15); BUN/Creatinine Ratio 22.9 (10.0-20.0); Calcium 9.6 mg/dL (8.7-10.4); Glucose 88 mg/dL (74-106); Potassium 3.6 mmol/L (3.5-5.1)
[2024-03-11 08:47] LABS: Albumin 3.6 g/dL (3.2-4.8)
[2024-03-11 08:48] LABS: Bilirubin, Total 1.1 mg/dL (0.2-1.0); Total Protein 6.6 g/dL (5.7-8.2)
[2024-03-11 08:49] LABS: Alanine Aminotransferase 287 U/L (7-40); Aspartate Aminotransferase 109 U/L (13-40); Blood Urea Nitrogen 52 mg/dL (9-23); Carbon Dioxide 36 mmol/L (20-31); Chloride 90 mmol/L (98-107); Sodium 135 mmol/L (136-145)
[2024-03-11] MEDS: POTASSIUM CHL 20 Meq TABLET PO ONE (09:26)
--- NOTE | 2024-03-11 09:29 | DVH ---
CLINICAL INFORMATION: 68 years old, Male; congestive heart failure. TECHNIQUE: Single AP portable chest radiograph was obtained. COMPARISON: XY CHEST PORTABLE on DOS: 03/06/24 FINDINGS: Lungs: Small left pleural effusion with overlying atelectasis and consolidation, are more conspicuous compared to the prior exam. Likely atelectasis and consolidation in the right lung base. Possible sm all right pleural effusion. Bilateral perihilar interstitial opacities. Cardiac: Unchanged cardiomegaly. Pulmonary vasculature: Prominence of the pulmonary vasculature. Mediastinum/tommy: Unremarkable. Bones: No acute osseous abnormality identified. Other: No other significant findings. IMPRESSION: 1. Findings described above may be seen with pulmonary vascular congestion / interstitial pulmonary e roberta in the appropriate clinical setting. 2. Small left and possible small right pleural effusions with overlying atelectasis and/or consolidat ion.
--- NOTE | 2024-03-11 10:15 | DVHPN2 ---
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 Objective vital signs Vital Sign Date Time Temp Pulse Resp B/P (MAP) Pulse Ox O2 Delivery O2 Flow Rate FiO2 03/11/24 09:27 90 105/70 03/11/24 09:00 98.1 20 96 98.1 03/11/24 07:35 Nasal Cannula* 3 32 Total Intake and Output 03/10/24 03/10/24 03/11/24 15:00 23:00 07:00 Intake Total 855 ml 470 ml Output Total 1550 ml Balance 855 ml -1080 ml medications Current Medications Medications Dose Ordered Sig/Joe Route Start Time Stop Time Status Last Admin Dose Admin Acetaminophen 650 mg Q6HP PRN PO 03/06/24 09:00 03/08/24 08:40 650 MG Ondansetron HCl 4 mg Q4HP PRN IV 03/06/24 09:00 Nitroglycerin 0.4 mg Q5MINP PRN SL 03/06/24 09:00 Morphine Sulfate 2 mg Q30M PRN IV 03/06/24 09:00 Albuterol 2.[address] [facility] 03/06/24 12:00 03/11/24 07:21 2.5 MG Albuterol 2.5 mg Q4HPRN PRN NEB 03/06/24 09:00 Ipratropium [place] 0.[address] [facility] 03/06/24 12:00 03/11/24 07:21 0.5 MG Ipratropium [place] 0.5 mg Q4HPRN PRN NEB 03/06/24 09:00 Atorvastatin Calcium 20 mg HS PO 03/06/24 22:00 03/10/24 21:23 20 MG Metoprolol Succinate 100 mg DAILY PO 03/08/24 10:00 03/11/24 09:27 100 MG Levothyroxine Sodium 112 mcg QAM@0600 PO 03/08/24 06:00 03/11/24 05:42 112 MCG Levothyroxine Sodium 25 mcg DAILY@0600 PO 03/08/24 06:00 03/11/24 05:43 25 MCG Digoxin 0.125 mg MWF PO 03/10/24 10:00 03/10/24 10:11 0.125 MG Amiodarone HCl 200 mg Q12HR PO 03/10/24 11:30 03/11/24 09:27 200 MG Furosemide 40 mg BIDD PO 03/10/24 18:00 03/10/24 18:41 40 MG Enoxaparin Sodium 130 mg Q12HR [place] 03/10/24 22:00 03/11/24 09:26 130 MG Examination: GENERAL:Normal, LUNGS:Normal, CVS:Abnormal (Patient remains in atrial fibrillation ), NEURO:Normal laboratory and microbiology Laboratory Tests 03/11/24 07:40 Test 03/11/24 07:40 Range/Units Serum Glucose 88 74-106 mg/dL Problem List/Assessment/Plan Problem List/Assessment/Plan NSTEMI, questionable Type I Atrial fibrillation with rapid ventricular response, newly diagnosed Acute on chronic decompensated HFrEF, NYHA class III Non-sustained ventricular tachycardia Peripheral arterial disease s/p right leg stent Pulmonary hypertension, moderate degree COPD with home oxygen dependence Hypertension GRACE on CKD Transaminitis History of heavy tobacco use Morbid obesity Plan/Recommendation (Dr. Romo) * Echocardiogram reveals EF 20-25% with severe global hypokinesis and RVSP 40- 50mmHg * Guideline directed medical therapy for CHF as renal function permits * Strict intake and output, daily weights, maintain fluid restriction * NOAC therapy, Eliquis BID * [id number] VASc score: 3 points * Rate control, beta-geno and digoxin therapy -- * Antiarrhythmic, amiodarone p.o. * Replete electrolytes as needed, k>4 and Mg>2 Highly suspected for underlined coronary artery disease. The patient denies undergoing invasive cardiac procedures in the past. He can benefit from ischemic work-up as renal function permits. Plans for possible coronary angiogram discussed with the patient with at bedside. The patient is adamant about leaving the hospital. Reports he would rather follow up with [facility]. The patient is refusing any ischemic workup at this facility at this time. Thank you for allowing us to care for this patient. Please call with any questions or concerns. This medical document was created using an electronic medical record system with voice recognition software and computerized dictation system. Although this document has been carefully reviewed, there might still be some phonetic and typographical errors. Occasional wrong-word or ``sound-alike substitutions may have occurred due to the inherent limitations of voice recognition software. These areas are purely typographical due to imperfections of the software programs and do not reflect any compromise in the patient's medical care. Please read the chart carefully and recognize, using context, where these substitutions have occurred. 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
--- NOTE | 2024-03-11 10:55 | DVHPN2 ---
Reviewed: Care Plan, H&P, Labs, Medications, Previous Orders, Radiology Changes from previous H/P or p: No Changes Eyes: No Pain, No Vision change, No Conjunctivae inflammation, No Eyelid inflammation, No Other, No Redness ENT: No Ear pain, No Ear discharge, No Nose pain, No Nose discharge, No Nose congestion, No Mouth pain, No Mouth swelling, No Throat pain, No Throat swelling, No Other Cardiovascular: No Chest Pain, No Palpitations, No Orthopnea, No Paroxysmal Noc. Dyspnea, No Edema, No Lt Headedness, No Other Respiratory: No Cough, No Dry; Shortness of breath; No SOB with excertion, No Wheezing, No Hemoptysis, No Pleuritic Pain, No Sputum, No Other Gastrointestinal: Nausea; No Vomiting, No Abdominal Pain, No Diarrhea, No Constipation, No Melena, No Hematochezia, No Other Genitourinary: No Dysuria, No Frequency, No Incontinence, No Hematuria, No Retention, No Other Musculoskeletal: No other, No neck pain, No shoulder pain, No arm pain, No back pain, No hand pain, No leg pain, No foot pain Skin: No Rash, No Lesions, No Jaundice, No Bruising; Other Objective Vitals Vital Signs Date Time Temp Pulse Resp B/P (MAP) Pulse Ox O2 Delivery O2 Flow Rate FiO2 03/11/24 09:27 90 105/70 03/11/24 09:00 98.1 20 96 98.1 03/11/24 07:35 Nasal Cannula* 3 32 Intake/Output Intake and Output 03/11/24 07:00 Intake Total 1325 ml Output Total 1550 ml Balance -225 ml Intake Oral 1325 ml Output Urine Total 1550 ml # Voids 4 # Bowel Movements 2 Medications Current Medications Medications Dose Ordered Sig/Joe Route Start Time Stop Time Status Last Admin Dose Admin Acetaminophen 650 mg Q6HP PRN PO 03/06/24 09:00 03/08/24 08:40 650 MG Ondansetron HCl 4 mg Q4HP PRN IV 03/06/24 09:00 Nitroglycerin 0.4 mg Q5MINP PRN SL 03/06/24 09:00 Morphine Sulfate 2 mg Q30M PRN IV 03/06/24 09:00 Albuterol 2.5 mg Q6HWA NEB 03/06/24 12:00 03/11/24 07:21 2.5 MG Albuterol 2.5 mg Q4HPRN PRN NEB 03/06/24 09:00 Ipratropium [place] 0.5 mg Q6HWA NEB 03/06/24 12:00 03/11/24 07:21 0.5 MG Ipratropium [place] 0.5 mg Q4HPRN PRN NEB 03/06/24 09:00 Atorvastatin Calcium 20 mg HS PO 03/06/24 22:00 03/10/24 21:23 20 MG Metoprolol Succinate 100 mg DAILY PO 03/08/24 10:00 03/11/24 09:27 100 MG Levothyroxine Sodium 112 mcg QAM@0600 PO 03/08/24 06:00 03/11/24 05:42 112 MCG Levothyroxine Sodium 25 mcg DAILY@0600 PO 03/08/24 06:00 03/11/24 05:43 25 MCG Digoxin 0.125 mg MWF PO 03/10/24 10:00 03/10/24 10:11 0.125 MG Amiodarone HCl 200 mg Q12HR PO 03/10/24 11:30 03/11/24 09:27 200 MG Furosemide 40 mg BIDD PO 03/10/24 18:00 03/10/24 18:41 40 MG Enoxaparin Sodium 130 mg Q12HR SC 03/10/24 22:00 03/11/24 09:26 130 MG Laboratory Results Laboratory Tests 03/11/24 07:40 Chemistry Test 03/11/24 07:40 Albumin 3.6 g/dL (3.2-4.8) Calcium Level 9.6 mg/dL (8.7-10.4) Total Protein 6.6 g/dL (5.7-8.2) Cardiac Markers Test 03/11/24 07:40 B-Type Natriuretic Peptide 1268.16 pg/mL (0-100) LFT Test 03/11/24 07:40 Alanine Aminotransferase (ALT) 287 U/L (7-40) H Alkaline Phosphatase 80 U/L (46-116) Aspartate Amino Transferase (AST) 109 U/L (13-40) H Total Bilirubin 1.1 mg/dL (0.2-1.0) H Urinalysis Test 03/06/24 01:02 Urine Color Yellow (Yellow) Urine Clarity Clear (Clear) Urine pH 5.5 (5.0-9.0) Urine Specific [place] 1.024 (1.001-1.035) Urine Protein 1+ (Negative) H Urine Ketones Negative (Negative) Urine Blood 2+ /uL (Negative) H Urine Nitrite Negative (Negative) Urine Bilirubin Negative (Negative) Urine Urobilinogen 2 mg/dL (Negative) H Urine Leukocyte Esterase Negative /uL (Negative) Urine RBC 13 /hpf (0 - 3) Urine Microscopic WBC 7 /HPF (0-3) H Urine Squamous Epithelial Cells Few /hpf (<5) Urine Bacteria None seen /hpf (None Seen) Urine Hyaline Casts Many /lpf (0 - 2) Urine Mucus Few (None Seen) Urine Glucose Normal mg/dL (Normal) Labs and/or images reviewed: Labs reviewed by me, Image(s) reviewed by me Assessment/Plan Assessment/Plan Atrial fibrillation with rapid ventricular response, ?newly diagnosed, Eliquis, metoprolol digoxin 3 times a week amiodarone tablets Acute on chronic decompensated HFrEF, NYHA class III, ejection fraction 20% cardiology consult appreciated NSTEMI, possibly type 1 Hypertension Hypothyroidism TSH 6.75: Synthroid Peripheral arterial disease s/p right leg stent Pulmonary hypertension COPD with home oxygen dependence Acute kidney injury versus chronic kidney disease nephrology consult appreciated placed on Lasix twice a day and metolazone tablet, not much improvement in kidney function History of heavy tobacco use Morbid obesity Susan test negative Flu test negative Per Cardiology patient is a candidate for left heart catheterization once kidney function is stable Time Spent 65 minutes Full code Patient does not have a PCP, social service consult placed Advanced care planning time 20 minutes Pts daughter WON [phone] at bedside Patient planning to leave AMA Plan discussed with: Patient My Orders Orders - KORY ARCE MD Procedure Category Date Status Time Complete Blood Count LAB 03/12/24 Verified 05:00 Complete Blood Count LAB 03/13/24 Verified 05:00 Complete Blood Count LAB 03/14/24 Verified 05:00 Complete Blood Count LAB 03/15/24 Verified 05:00 Complete Blood Count LAB 03/16/24 Verified 05:00 Comprehensive LAB 03/12/24 Verified Metabolic Panel 05:00 Comprehensive LAB 03/13/24 Verified Metabolic Panel 05:00 Comprehensive LAB 03/14/24 Verified Metabolic Panel 05:00 Comprehensive LAB 03/15/24 Verified Metabolic Panel 05:00 Comprehensive LAB 03/16/24 Verified Metabolic Panel 05:00 Pt Request For Service PT 03/10/24 Logged 13:29 Date of Service: Mar 11, 2024 Billing Provider: KORY ARCE MD Common Visit Codes: [id number] CARE 30-74 MIN KORY ARCE MD Mar 11, 2024 10:54
--- NOTE | 2024-03-11 14:08 | DVHPN2 ---
Progress Note Date Seen: Mar 11, 2024 Medical Necessity Reason Pt with a Central, PICC or Fol: No Subjective Patient reports: Feels better Review of Systems: CVS:Abnormal Objective vital signs Vital Sign Date Time Temp Pulse Resp B/P (MAP) Pulse Ox O2 Delivery O2 Flow Rate FiO2 03/11/24 12:46 106 18 98 03/11/24 12:25 98.0 99/59 (72) 98.0 03/11/24 07:35 Nasal Cannula* 3 32 Total Intake and Output 03/10/24 03/10/24 03/11/24 15:00 23:00 07:00 Intake Total 855 ml 470 ml Output Total 1550 ml Balance 855 ml -1080 ml medications Current Medications Medications Dose Ordered Sig/Joe Route Start Time Stop Time Status Last Admin Dose Admin Acetaminophen 650 mg Q6HP PRN PO 03/06/24 09:00 03/08/24 08:40 650 MG Ondansetron HCl 4 mg Q4HP PRN IV 03/06/24 09:00 Nitroglycerin 0.4 mg Q5MINP PRN SL 03/06/24 09:00 Morphine Sulfate 2 mg Q30M PRN IV 03/06/24 09:00 Albuterol 2.5 mg Q6HWA [facility] 03/06/24 12:00 03/11/24 12:40 2.5 MG Albuterol 2.5 mg Q4HPRN PRN NEB 03/06/24 09:00 Ipratropium [place] 0.5 mg Q6HWA [facility] 03/06/24 12:00 03/11/24 12:40 0.5 MG Ipratropium [place] 0.5 mg Q4HPRN PRN [facility] 03/06/24 09:00 Atorvastatin Calcium 20 mg HS PO 03/06/24 22:00 03/10/24 21:23 20 MG Metoprolol Succinate 100 mg DAILY PO 03/08/24 10:00 03/11/24 09:27 100 MG Levothyroxine Sodium 112 mcg QAM@0600 PO 03/08/24 06:00 03/11/24 05:42 112 MCG Levothyroxine Sodium 25 mcg DAILY@0600 PO 03/08/24 06:00 03/11/24 05:43 25 MCG Digoxin 0.125 mg MWF PO 03/10/24 10:00 03/10/24 10:11 0.125 MG Amiodarone HCl 200 mg Q12HR PO 03/10/24 11:30 03/11/24 09:27 200 MG Furosemide 40 mg BIDD PO 03/10/24 18:00 03/10/24 18:41 40 MG Enoxaparin Sodium 130 mg Q12HR SC 03/10/24 22:00 03/11/24 09:26 130 MG Examination: GENERAL:Normal, CVS:Abnormal, SKIN:Abnormal laboratory and microbiology Laboratory Tests 03/11/24 07:40 Test 03/11/24 07:40 Range/Units Serum Glucose 88 74-106 mg/dL Problem List/Assessment/Plan Problem List/Assessment/Plan Acute kidney injury hemodynamically mediated Chronic kidney disease Atrial fibrillation with rapid ventricular response Acute systolic decompensated heart failure with ejection fraction 25% Hypotension NSTEMI transition to po diuretics. I explained in outpatient should take lasix BID. include oral potassium 10meQ chloride in home medications dc victor GRACE is improving potassium replacement edema is improving Strict Is&Os Avoid hypotension fluid restriction Cardiology consultation on amio Plan discussed with: Patient, Daughter My Orders My Orders Orders - SERGIO ORTIZ MD Procedure Category Date Status Time Discontinue Victor BASILIO 03/10/24 In Process Catheter 14:16 Furosemide Tablet PHA 03/10/24 In Process (Lasix Tablet) 18:00 SERGIO ORTIZ MD Mar 11, 2024 14:08
--- NOTE | 2024-03-12 08:21 | DVHDS2 ---
Discharge Summary Date of Admission Mar 06, 2024 at 08:54 Date of Discharge: Mar 11, 2024 Admitting Diagnosis Shortness of breath Wounds: None Labs/Diagnostic Data: Laboratory Results Test 03/11/24 07:40 03/10/24 07:03 03/07/24 18:16 03/07/24 16:03 White Blood Count 6.8 10^3/uL (4.4-10.8) Red Blood Count 4.23 10^6/uL (4.5-5.90) Hemoglobin 12.5 g/dL (13.5-17.5) Hematocrit 38.4 % (41.0-53.0) Mean Corpuscular Volume 90.8 fL (80.0-100.0) Mean Corpuscular Hemoglobin 29.6 pg (28.0-32.0) Mean Corpuscular Hemoglobin Concent 32.5 g/dL (32.0-36.0) Red Cell Distribution Width 15.1 % (11.8-14.3) Platelet Count 167 10^3/uL (140-450) Mean Platelet Volume 9.4 fL (6.9-10.8) Neutrophils (%) (Auto) 68.9 % (37.0-80.0) Lymphocytes (%) (Auto) 10.1 % (10.0-50.0) Monocytes (%) (Auto) 15.9 % (0.0-12.0) Eosinophils (%) (Auto) 4.8 % (0.0-7.0) Basophils (%) (Auto) 0.3 % (0.0-2.0) Neutrophils # (Auto) 4.7 10 ^3/uL (1.6-8.6) Lymphocytes # (Auto) 0.7 10 ^3/uL (0.4-5.4) Monocytes # (Auto) 1.1 10 ^3/uL (0-1.3) Eosinophils # (Auto) 0.3 10 ^3/uL (0-0.8) Basophils # (Auto) 0 10 ^3/uL (0-0.2) Nucleated Red Blood Cells 0.1 % Sodium Level 135 mmol/L (136-145) Potassium Level 3.6 mmol/L (3.5-5.1) Chloride Level 90 mmol/L (98-107) Carbon Dioxide Level 36 mmol/L (20-31) Anion Gap 9 (5-15) Blood Urea Nitrogen 52 mg/dL (9-23) Creatinine 2.27 mg/dL (0.700-1.30) Glomerular Filtration Rate Calc 30 mL/min (>90) BUN/Creatinine Ratio 22.9 (10.0-20.0) Serum Glucose 88 mg/dL (74-106) Calcium Level 9.6 mg/dL (8.7-10.4) Total Bilirubin 1.1 mg/dL (0.2-1.0) Aspartate Amino Transferase (AST) 109 U/L (13-40) Alanine Aminotransferase (ALT) 287 U/L (7-40) Alkaline Phosphatase 80 U/L (46-116) B-Type Natriuretic Peptide 1268.16 pg/mL (0-100) Total Protein 6.6 g/dL (5.7-8.2) Albumin 3.6 g/dL (3.2-4.8) Magnesium Level 1.9 mg/dL (1.6-2.6) Influenza Type A Antigen Negative (Negative) Influenza Type B Antigen Negative (Negative) D-Dimer, Quantitative 2.17 mg/L FEU (0.0-0.49) Test 03/07/24 15:15 03/07/24 10:00 03/06/24 09:21 03/06/24 01:11 SARS-CoV-2 Antigen (Rapid) Negative (NEGATIVE) Free Thyroxine (T4) Calculated 1.09 ng/dL (0.89-1.76) Free Triiodothyronine (T3) pg/mL 2.66 pg/mL (2.3-4.2) Troponin I High Sensitivity 131 ng/L (</=54) Triglycerides Level 111 mg/dL (< 150) Cholesterol Level 118 mg/dL (< 200) LDL Cholesterol 81 mg/dL (< 100) HDL Cholesterol 25 mg/dL (40-59) Thyroid Stimulating Hormone (TSH) 6.75 uIU/mL (0.55-4.78) Hemoglobin A1c 5.8 % A1C (<5.7) Test 03/06/24 01:02 Urine Color Yellow (Yellow) Urine Clarity Clear (Clear) Urine pH 5.5 (5.0-9.0) Urine Specific [place] 1.024 (1.001-1.035) Urine Protein 1+ (Negative) Urine Ketones Negative (Negative) Urine Blood 2+ /uL (Negative) Urine Nitrite Negative (Negative) Urine Bilirubin Negative (Negative) Urine Urobilinogen 2 mg/dL (Negative) Urine Leukocyte Esterase Negative /uL (Negative) Urine RBC 13 /hpf (0 - 3) Urine Microscopic WBC 7 /HPF (0-3) Urine Squamous Epithelial Cells Few /hpf (<5) Urine Bacteria None seen /hpf (None Seen) Urine Hyaline Casts Many /lpf (0 - 2) Urine Mucus Few (None Seen) Urine Glucose Normal mg/dL (Normal) Urine Opiates Screen Neg (NEGATIVE) Urine Fentanyl Screen Neg (NEGATIVE) Urine Barbiturates Screen Neg (NEGATIVE) Urine Phencyclidine Screen Neg (NEGATIVE) Urine Amphetamines Screen Neg (NEGATIVE) Urine Benzodiazepines Screen Neg (NEGATIVE) Urine Cocaine Screen Neg (NEGATIVE) Urine Cannabinoids Screen Neg (NEGATIVE) Other Laboratory Tests 03/11/24 07:40 Brief Hx & Hospital Course: 68-year-old male noncompliant with a poor medical care with a history of hypertension hypothyroidism pulmonary hypertension peripheral arterial disease COPD home oxygen use history of heavy tobacco abuse morbidly obese with a BMI of 39 admitted to the hospital for shortness of breaths found to have AFib with RVR. 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 The patient also had non STEMI and possibly type 1 TSH was high 6.75 placed on Synthroid history of right leg stent for peripheral arterial disease patient had acute kidney injury over chronic kidney disease nephrology consult was appreciated patient was placed on Lasix and metolazone marginal improvement in kidney function Susan test negative flu test negative per Cardiology patient is a candidate for left heart catheterization once kidney function is stable. Patient has been threatening to leave [place] from the time of admission since day one claiming that he has to take care of his properties at [facility] and has to go home to take care of it. The patient's daughter was at the bedside during one of the days of hospitalization. The patient fails to realize the seriousness of his heart and kidney condition in spite of repeated education. While awaiting further stabilization patient left [place] on 03/11/2024. He was clearly explained about the consequences and complications including possible and he verbalized understanding and still decided to leave AMA and left AMA. General condition poor at the time of leaving AMA Consults/Reason for consult Cardiology Nephrology Operations or Procedures Echocardiogram Condition at Discharge: Poor Final Diagnosis/Problems List Atrial fibrillation with rapid ventricular response, ?newly diagnosed, Eliquis, metoprolol digoxin 3 times a week amiodarone tablets Acute on chronic decompensated HFrEF, NYHA class III, ejection fraction 20% cardiology consult appreciated NSTEMI, possibly type 1 Hypertension Hypothyroidism TSH 6.75: Synthroid Peripheral arterial disease s/p right leg stent Pulmonary hypertension COPD with home oxygen dependence Acute kidney injury versus chronic kidney disease nephrology consult appreciated placed on Lasix twice a day and metolazone tablet, not much improvement in kidney function History of heavy tobacco use Morbid obesity Susan test negative Flu test negative Per Cardiology patient is a candidate for left heart catheterization once kidney function is stable Discharge Disposition: AMA Discharge Instruct/Medications Diet comment: Not applicable Patient left AMA Activity comment: Not applicable Patient left AMA Follow Up/Referral: Not applicable Patient left AMA Medications: Not applicable Patient left AMA 45 (Time taken for discharge summary 45 minutes) Discharge Statement: "Patient was advised to return to the ER or call 911 if any headaches, dizziness, shortness of breath, chest pain, abdominal pain, bleeding, fevers, or worsening of medical condition. Patient was counseled about treatment plan, medications, possible side effects, patientverbalized understanding. All questions were answered to the best of my ability. This discharge took greater then 30 minutes in planning, reviewing documentation, counseling the patient, and discussing with other team members." ASSESSMENT ASSESSMENT Hospital Course Marginal improvement Patient left AMA Assessment Date of Service: Mar 12, 2024 Billing Provider: KORY ARCE MD Common Visit Codes: [id number] DISCH DAY >30min KORY ARCE MD Mar 12, 2024 08:21
== END 2024-03-11 17:48 | disposition left against medical advice (07) | DRG 280 ==
LOC: ER 00:42 → EDBD 00:42 → TELE 08:54 → TELE-WESTW 08:56
PROVIDERS: ATTEND Family Medicine
DX: I21.4 Non-ST elevation (NSTEMI) myocardial infarction (principal); I50.23 Acute on chronic systolic (congestive) heart failure; N17.0 Acute kidney failure with tubular necrosis; J96.01 Acute respiratory failure with hypoxia; I13.0 Hypertensive heart and chronic kidney disease with heart failure and stage 1 through stage 4 chronic kidney disease, or unspecified chronic kidney disease; Z68.41 Body mass index [BMI] 40.0-44.9, adult; I48.20 Chronic atrial fibrillation, unspecified; Z20.822 Contact with and (suspected) exposure to COVID-19; E66.01 Morbid (severe) obesity due to excess calories; I73.9 Peripheral vascular disease, unspecified; J44.9 Chronic obstructive pulmonary disease, unspecified; I27.20 Pulmonary hypertension, unspecified; I10 Essential (primary) hypertension; N18.9 Chronic kidney disease, unspecified; E78.5 Hyperlipidemia, unspecified; Z53.29 Procedure and treatment not carried out because of patient's decision for other reasons; Z99.81 Dependence on supplemental oxygen; Z95.820 Peripheral vascular angioplasty status with implants and grafts; Z87.891 Personal history of nicotine dependence; Z88.0 Allergy status to penicillin
CPT/HCPCS: 36415; 71045; 80048; 80053; 80061; 80307; 81001; 83036; 83735; 83880; 84439; 84443; 84481; 84484; 85025; 85379; 87426; 87804; 93005; 93306; 94640; 94660; 96365; 96375; 97110; 97116; 97163; 97530; 99291; G0378; J3470